=== PATIENT | male | born 1965 | race Caucasian/White ===

== ENCOUNTER 2022-02-08 01:27 | Inpatient (IN) | payer BC ==
[2022-02-08] MEDS ORDERED: HYDROmorphone 1 MG/ML 1 ML SYRINGE IM STA (01:35)
[2022-02-08] MEDS ORDERED: HYDROmorphone 1 MG/ML 1 ML SYRINGE IVP STA (01:36)
--- NOTE | 2022-02-08 01:43 | ED ---
Chest Pain HPI - General Stated Complaint: Chest pain Source: patient, RN notes reviewed, old records reviewed Mode of arrival: EMS Limitations: no limitations - History of Present Illness Initial Comments: This is a 56-year-old male DF for evaluation today. Patient has history of chest pain and presented for chest pain today. Patient has history of heart disease with recent stent placed patient is stent placed on Friday is also scheduled for stent placement on Friday. Patient is currently having adequate chest pain persistent chest pain positive nausea no vomiting no other complaints MD Complaint: chest pain -: hour(s) Onset: during rest Pain Location: left chest Pain Radiation: LUE Severity: severe Severity scale (1-10): 10 Quality: tightness Consistency: constant Improves With: nothing Worsens With: nothing Anginal Symptoms: dyspnea Other Symptoms: palpitations Treatments Prior to Arrival: none - Related Data Allergies Allergy/AdvReac Type Severity Reaction Status Date / Time No Known Allergies Allergy Verified 02/08/22 01:30 Review of Systems ROS Statement: Those systems with pertinent positive or pertinent negative responses have been documented in the HPI. ROS Other: All systems not noted in ROS Statement are negative. Past Medical History Past Medical History: Coronary Artery Disease (CAD), Diabetes Mellitus, Hyperlipidemia, Hypertension History of Any Multi-Drug Resistant Organisms: None Reported Past Surgical History: Heart Catheterization With Stent, Orthopedic Surgery Past Psychological History: No Psychological Hx Reported Smoking Status: Current every day smoker Past Alcohol Use History: Occasional Past Drug Use History: Marijuana General Exam Limitations: no limitations General appearance: alert, in no apparent distress Head exam: Present: atraumatic, normocephalic, normal inspection Eye exam: Present: normal appearance, PERRL, EOMI. Absent: scleral icterus, conjunctival injection, periorbital swelling ENT exam: Present: normal exam, mucous membranes moist Neck exam: Present: normal inspection. Absent: tenderness, meningismus, lymphadenopathy Respiratory exam: Present: normal lung sounds bilaterally. Absent: respiratory distress, wheezes, rales, rhonchi, stridor Cardiovascular Exam: Present: regular rate, normal rhythm, normal heart sounds. Absent: systolic murmur, diastolic murmur, rubs, gallop, clicks GI/Abdominal exam: Present: soft, normal bowel sounds. Absent: distended, tenderness, guarding, rebound, rigid Extremities exam: Present: normal inspection, full ROM, normal capillary refill. Absent: tenderness, pedal edema, joint swelling, calf tenderness Back exam: Present: normal inspection Neurological exam: Present: alert, oriented X3, CN II-XII intact Psychiatric exam: Present: normal affect, normal mood Skin exam: Present: warm, dry, intact, normal color. Absent: rash Course Vital Signs 02/08/22 01:30 Temperature 97.2 F L Pulse Rate 76 Respiratory 16 Rate O2 Sat by Pulse 98 Oximetry - Reevaluation(s) Reevaluation #1: 02/08/22 02:42 Medical record is reviewed Reevaluation #2: 02/08/22 02:42 Patient still having persistent chest pain here in the ER Reevaluation #3: 02/08/22 02:42 Patient informed of results and questions have been answered - Consultations Consultation #1: Spoke with cardiology on-call aware of patient's EKG and clinical condition Consultation #2: Spoke with admitting physicians agreeable to admit patient Chest Pain MDM - MDM 56 male to the ER for evaluation chest pain. Will be admitted for ACS and NSTEMI Critical Care Time Critical Care Time: Yes Total Critical Care Time: 31 Disposition Clinical Impression: Chest pain, ACS (acute coronary syndrome), Acute non-ST elevation myocardial infarction (NSTEMI) Disposition: ADMITTED IP TO THIS HOSP Condition: Undetermined Is patient prescribed a controlled substance at d/c from ED?: No Referrals: None,Stated [Primary Care Provider] - 1-2 days
[2022-02-08] MEDS ORDERED: ASPIRIN 81 MG PO STA (01:51)
[2022-02-08] MEDS ORDERED: NITROGLYCERIN SL TABS 0.4 MG TAB SUBLINGUAL PRN ×2 (01:51→09:58)
[2022-02-08] MEDS ORDERED: MORPHINE SULFATE 4 MG/ML SYRINGE IV PRN (01:51)
[2022-02-08] MEDS ORDERED: HEPARIN SODIUM 1,000 UN/ML (10ML VL) IV ONE (01:51)
[2022-02-08] MEDS ORDERED: ONDANSETRON 4 MG/2 ML VIAL IVP STA (01:52)
[2022-02-08] MEDS ORDERED: METOPROLOL TARTRATE 5 MG/5 ML VIAL IVP STA (01:53)
[2022-02-08 01:57] LABS: Basophils % (A) 0 %; Eosinophils # (A) 0.1 k/uL (0-0.7); Eosinophils % (A) 1 %; HCT 43.6 % (39.0-53.0); HGB 14.5 gm/dL (13.0-17.5); Lymphocytes % (A) 7 %; MCH 28.3 pg (25.0-35.0); MCHC 33.3 g/dL (31.0-37.0); Mean Platelet Volume 8.9; Monocytes # (A) 0.4 k/uL (0-1.0); Monocytes % (A) 3 %; Neutrophils # (A) 12.8 k/uL (1.3-7.7); Neutrophils % (A) 89 %; Platelet Count 208 k/uL (150-450); RBC 5.13 m/uL (4.30-5.90); RDW 13.8 % (11.5-15.5); WBC 14.5 k/uL (3.8-10.6)
[2022-02-08] MEDS: NITROGLYCERIN OINT 1 INCH/GM PACKET TOPICAL SCH ×2 (01:59→06:56)
[2022-02-08] MEDS: HEPARIN SOD,PORK IN 0.45% NACL 25,000 UNIT in 0.45% NACL 1 250ML.BAG IV SCH (02:01)
[2022-02-08] MEDS ORDERED: NITROGLYCERIN SL TABS 0.4 MG TAB SUBLINGUAL STA (02:12)
[2022-02-08 02:21] LABS: INR 1.1 (<1.2)
[2022-02-08 02:22] LABS: Partial Thromboplastin Time 22.9 sec (22.0-30.0); Prothrombin Time 11.6 sec (9.0-12.0)
[2022-02-08 02:54] LABS: ALT 24 U/L (4-49); AST 46 U/L (17-59); African American GFR (CKD) >90 (>60 ml/min/1.73 sqM); Albumin 4.4 g/dL (3.5-5.0); Alkaline Phosphatase 98 U/L (38-126); Anion Gap 11 mmol/L; Blood Urea Nitrogen 21 mg/dL (9-20); Calcium 9.1 mg/dL (8.4-10.2); Carbon Dioxide 21 mmol/L (22-30); Chloride 106 mmol/L (98-107); Glucose 179 mg/dL (74-99); Magnesium 1.9 mg/dL (1.6-2.3); Non-African American GFR(CKD) 89 (>60 ml/min/1.73 sqM); Potassium 4.3 mmol/L (3.5-5.1); Sodium 138 mmol/L (137-145); Total Bilirubin 1.7 mg/dL (0.2-1.3); Total Protein 7.3 g/dL (6.3-8.2)
--- NOTE | 2022-02-08 04:25 | XR ---
EXAM: XR Chest, 1 View CLINICAL HISTORY: ITS.REASON XR Reason: Chest Pain TECHNIQUE: Frontal view of the chest. COMPARISON: No relevant prior studies available. FINDINGS: Lungs: Slight bibasilar opacities. Pleural space: No acute findings Heart: Mild cardiomegaly. Bones/joints: No acute findings. IMPRESSION: Slight bibasilar opacities.
[2022-02-08 05:51] LABS: Platelet Count 198 k/uL (150-450)
[2022-02-08] MEDS ORDERED: ATORVASTATIN 80 MG TAB PO STA (07:53)
[2022-02-08] MEDS ORDERED: ALPRAZolam 0.25 MG TAB PO PRN (08:12)
[2022-02-08] MEDS ORDERED: VERAPAMIL 2.5 MG/ML 2 ML AMP ONE (08:33)
[2022-02-08] MEDS ORDERED: fentaNYL (PF) 50 MCG/ML 2 ML AMP ONE (08:47)
[2022-02-08] MEDS ORDERED: HEPARIN SODIUM 1,000 UN/ML (10ML VL) ONE (08:48)
[2022-02-08] MEDS ORDERED: IV FLUID CONTINUATION 500 ML IV ONE (08:54)
--- NOTE | 2022-02-08 08:55 | P.CRDCN ---
History of Present Illness History of present illness: This is a 56 year old male with a past medical history of coronary artery disease s/p PCI recently to LAD on 02/01/2022, and PCI 13 years ago at [facility], Type 2 Diabetes, Hypertension, hyperlipidemia, chronic nicotine dependence (smoking 1/2 PPD, now down to 5-6 cigarettes per day). He follows with Dr. Sellers in [place]. We have in consultation for patient for acute coronary syndrome. Foster ruth presents emergency department with complaints of chest pain. He recently underwent stenting to the LAD by Dr. Sellers this past Friday secondary to an abnormal stress test. He states that yesterday he had an episode of chest discomfort. Located midsternal, radiating to his left arm. He associated diaphoresis. He denies any specific aggravating or alleviating factors. Nitro did not help his pain. His pain became so severe he presents emergency department for further evaluation. He denies shortness of breath, lightheadedness, dizziness, syncope or near syncope. She denies any palpita tions, orthopnea PND. He denies taking any dual antiplatelet therapy. He was only taking aspirin after his stent placement. He was not taking Plavix, Brilinta or Effient. He states he does not think he was prescribed these. He currently smokes 56 cigarettes per day. He has been smoking for 35 years. He endorses occasional alcohol use 2-3 beers occasionally. Occassionally uses marijuana. He denies any history of stroke or heart failure. DIAGNOSTICS EKG reveals sinus rhythm, heart rate 71, T wave inversions in anterior and lateral leads, and lead II. ST abnormalities in lead V3. No prior EKG to compare. Telemetry tracings indicate sinus mechanism Chest xray no acute cardiopulmonary process Laboratory reviewed, troponin 0.24, 2.39, proBNP 45, WBC 14.5, hemoglobin 14.5, platelets 208, sodium 138, potassium 4.3, BUN 21, serum creatinine 0.9 Current home medications include aspirin 80 mg daily, metformin 500 mg daily, lisinopril 10 mg daily, Imdur 30 mg daily, Bumex 1 mg daily, atorvastatin 40 mg daily REVIEW OF SYSTEMS At the time of my exam: CONSTITUTIONAL: Denies fever or chills. +diaphoresis CARDIOVASCULAR: +chest pain,Denies shortness of breath, orthopnea, PND or pal pitations. RESPIRATORY: Denies cough. GASTROINTESTINAL: Denies abdominal pain, diarrhea, constipation, nausea or vomiting. MUSCULOSKELETAL: Denies myalgias. NEUROLOGIC: Denies numbness, tingling, headacbe or weakness. ENDOCRINE: Denies fatigue, weight change, polydipsia or polyurina. GENITOURINARY: Denies burning, hematuria or urgency with micturation. HEMATOLOGIC: Denies history of anemia or bleeding. PHYSICAL EXAMINATION Blood pressure 153, heart rate 51, afebrile, oxygen saturation 98% room air CONSTITUTIONAL: No apparent distress. HEENT: Head is normocephalic. Pupils are equal, round. Sclerae anicteric. Mucous membranes of the mouth are moist. No JVD. No carotid bruit. CHEST EXAMINATION: Lungs are clear to auscultation. No chest wall tenderness is noted on palpation or with deep breathing. HEART EXAMINATION: Regular rate and rhythm. S1, S2 heard. Systolic murmur noted. No gallops or rub. ABDOMEN: Soft, nontender. Positive bowel sounds. EXTREMITIES: 2+ peripheral pulses, no lower extremity edema and no calf tenderness. NEUROLOGIC EXAMINATION: Patient is awake, alert and oriented x3. ASSESSMENT NSTEMI, patient not taking dual antiplatelet therapy after recent stent place ment Coronary artery disease s/p PCI recently to LAD on 02/01/2022, and PCI 13 years ago at [facility] Type 2 Diabetes Hypertension Hyperlipidemia Chronic nicotine dependence PLAN Plan for cardiac catheterization with Dr. Stevens this morning, patient is agreeable I have discussed the risks, benefits and alternative therapies for the above- mentioned procedure and for both sedation/analgesia as well as necessary blood product administration, if indicated, as they pertain to this patient. The evy ent has indicated understanding and acceptance of the risks and procedures discussed. Questions have been answered appropriately and he is agreeable to move forward with the above-stated procedure. Obtain 2D echocardiogram and doppler study to assess cardiac structure and function. Further recommendations based on clinical course Nurse practitioner note has been reviewed by physician. Signing provider agrees with the documented findings, assessment, and plan of care. Past Medical History Past Medical History: Coronary Artery Disease (CAD), Diabetes Mellitus, Hyperlipidemia, Hypertension History of Any Multi-Drug Resistant Organisms: None Reported Past Surgical History: Heart Catheterization With Stent, Orthopedic Surgery Past Psychological History: No Psychological Hx Reported Smoking Status: Current every day smoker Past Alcohol Use History: Occasional Past Drug Use History: Marijuana Medications and Allergies Home Medications Medication Instructions Recorded Confirmed Type Aspirin EC [Ecotrin Low Dose] 81 mg PO DAILY 02/08/22 02/08/22 History Atorvastatin [Lipitor] 40 mg PO DAILY 02/08/22 02/08/22 History Bumetanide [Bumex] 1 mg PO DAILY 02/08/22 02/08/22 History Isosorbide Mononitrate ER [Imdur] 30 mg PO DAILY 02/08/22 02/08/22 History Pantoprazole [Protonix] 40 mg PO DAILY 02/08/22 02/08/22 History lisinopriL [Zestril] 10 mg PO DAILY 02/08/22 02/08/22 History metFORMIN HCL ER [Glucophage XR] 500 mg PO DAILY 02/08/22 02/08/22 History Allergies Allergy/AdvReac Type Severity Reaction Status Date / Time No Known Allergies Allergy Verified 02/08/22 07:02 Physical Exam Vitals: Vital Signs Temp Pulse Resp BP Pulse Ox 02/08/22 06:00 51 L 16 100/53 98 02/08/22 05:00 60 12 133/80 02/08/22 04:30 58 L 16 146/85 02/08/22 04:00 53 L 16 160/99 02/08/22 03:30 54 L 19 151/86 02/08/22 03:00 62 18 148/89 02/08/22 02:30 73 11 L 152/86 02/08/22 01:30 97.2 F L 76 16 98 Intake and Output 02/07/22 02/08/22 02/08/22 22:59 06:59 14:59 Other: Weight 108.862 kg Results 02/08/22 05:26 02/08/22 02:07 Cardiac Enzymes 02/08/22 02/08/22 02/08/22 Range/Units 02:07 02:07 05:26 AST 46 (17-59) U/L Troponin I 0.243 H* 2.390 H* (0.000-0.034) ng/mL Coagulation 02/08/22 Range/Units 01:48 PT 11.6 (9.0-12.0) sec APTT 22.9 (22.0-30.0) sec CBC 02/08/22 02/08/22 Range/Units 01:48 05:26 WBC 14.5 H (3.8-10.6) k/uL RBC 5.13 (4.30-5.90) m/uL Hgb 14.5 (13.0-17.5) gm/dL Hct 43.6 (39.0-53.0) % Plt Count 208 198 (150-450) k/uL Comprehensive Metabolic Panel 02/08/22 Range/Units 02:07 Sodium 138 (137-145) mmol/L Potassium 4.3 (3.5-5.1) mmol/L Chloride 106 (98-107) mmol/L Carbon Dioxide 21 L (22-30) mmol/L BUN 21 H (9-20) mg/dL Creatinine 0.96 (0.66-1.25) mg/dL Glucose 179 H (74-99) mg/dL Calcium 9.1 (8.4-10.2) mg/dL AST 46 (17-59) U/L ALT 24 (4-49) U/L Alkaline Phosphatase 98 (38-126) U/L Total Protein 7.3 (6.3-8.2) g/dL Albumin 4.4 (3.5-5.0) g/dL Current Medications Generic Name Dose Route Start Last Admin Trade Name Freq PRN Reason Stop Dose Admin Aspirin 325 mg 02/09/22 09:00 Aspirin 325 Mg Tab PO DAILY [facility] Atorvastatin Calcium 80 mg 02/08/22 07:53 Atorvastatin 80 Mg Tab PO 02/08/22 07:54 ONCE STA Heparin Sodium/Sodium Chloride 250 mls @ 10 mls/hr 02/08/22 02:00 02/08/22 02:01 25,000 unit/ Sodium Chloride IV 9.1859 units/kg/hr .Q24H MAXINE 10 mls/hr Administration Protocol 9.1859 UNITS/KG/HR Morphine Sulfate 4 mg 02/08/22 01:51 02/08/22 04:02 Morphine Sulfate 4 Mg/Ml Syringe IV 4 mg Q4HR PRN Administration Chest Pain Nitroglycerin 0.4 mg 02/08/22 01:51 02/08/22 01:48 Nitroglycerin Sl Tabs 0.4 Mg Tab SUBLINGUAL 0.4 mg Q5M PRN Administration Chest Pain Nitroglycerin 1 inch 02/08/22 02:00 02/08/22 06:56 Nitroglycerin Oint 1 Inch/Gm Packet TOPICAL 1 inch Q6HR MAXINE Administration Intake and Output 02/07/22 02/08/22 02/08/22 22:59 06:59 14:59 Other: Weight 108.862 kg 02/08/22 05:26 02/08/22 02:07
[2022-02-08] MEDS ORDERED: LIDOCAINE 1% INJ 10MG/ML (30 ML VIAL-PF) SQ ONE (08:59)
[2022-02-08] MEDS ORDERED: fentaNYL (PF) 50 MCG/ML 2 ML AMP IV ONE (08:59)
[2022-02-08] MEDS ORDERED: VERAPAMIL SYRINGE (5 MG/10 ML) INTRAARTER ONE (09:00)
[2022-02-08] MEDS: HEPARIN SODIUM 1,000 UN/ML (10ML VL) IV ONE ×2 (09:04→09:11)
[2022-02-08] MEDS ORDERED: TICAGRELOR 90 MG TAB ONE (09:11)
[2022-02-08] MEDS ORDERED: TICAGRELOR 90 MG TAB PO ONE (09:14)
[2022-02-08] MEDS ORDERED: IOPAMIDOL-370 125ML BTL INJ ONE (09:19)
[2022-02-08] MEDS ORDERED: IOPAMIDOL-370 100ML BTL INJ ONE (09:45)
--- NOTE | 2022-02-08 09:54 | CA ---
Transthoracic Echo Report Name: Benigno Singh Age: 56 Gender: M : 1965 Exam Date: 02/08/2022 07:35 Exam Location: [facility] Ht (in): 68 Wt (lb): 240 Ordering Physician: Garrison Newton MD Attending/Referring Phys: [id number], [employer] Hiral Delarosa RDCS Procedure CPT: Indications: Rule out heart disease Cardiac Hx: Has two stents /cath Technical Quality: Technically difficult study Contrast 1: Lumason Total Dose (mL): 1 Contrast 2: Total Dose (mL): MEASUREMENTS (Male / Female) Normal Values 2D ECHO LV Diastolic Diameter PLAX 6.4 cm 4.2 - 5.9 / 3.9 - 5.3 cm LV Systolic Diameter PLAX 4.2 cm IVS Diastolic Thickness 1.1 cm 0.6 - 1.0 / 0.6 - 0.9 cm LVPW Diastolic Thickness 1.2 cm 0.6 - 1.0 / 0.6 - 0.9 cm LV Relative Wall Thickness 0.4 RV Internal Dim ED PLAX 2.3 cm M-MODE Aortic Root Diameter MM 3.3 cm LA Systolic Diameter MM 3.7 cm LA Ao Ratio MM 1.1 MV E Point Septal Separation 1.6 cm AV Cusp Separation MM 2.0 cm DOPPLER MV Area PHT 3.4 cm??? MR Peak Velocity 154.3 cm/s MR Peak Gradient 9.5 mmHg Mitral E Point Velocity 84.4 cm/s Mitral A Point Velocity 30.4 cm/s Mitral E to A Ratio 2.8 MV Deceleration Time 225.5 ms MV E' Velocity 5.4 cm/s Mitral E to MV E' Ratio 15.5 TR Peak Velocity 80.6 cm/s TR Peak Gradient 2.6 mmHg Right Ventricular Systolic Press 7.4 mmHg FINDINGS Left Ventricle Moderately increased left ventricular diastolic diameter. Left ventricular ejection fraction is estimated at 30 %. [place] hypokinetic. Grade 3 diastolic dysfunction. Right Ventricle Normal right ventricular size and function. Right Atrium Normal right atrial size. Left Atrium The left atrium is normal in size. Mitral Valve Structurally normal mitral valve without significant stenosis or prolapse. There is mild mitral regurgitation. Aortic Valve Structurally normal aortic valve without significant sclerosis or stenosis. There is no aortic regurgitation. Tricuspid Valve Structurally normal tricuspid valve without significant stenosis. Pulmonary artery systolic pressure is normal. Mild tricuspid regurgitation. Pulmonic Valve Structurally normal pulmonic valve without significant stenosis. There is no pulmonic regurgitation. Pericardium Normal pericardium without effusion. Aorta Normal aortic root dimension. CONCLUSIONS Dilated left ventricle with reduced LV systolic function and a large apical akinesis Left ventricular ejection fraction is 30% or less Previewed by: Dr. Kiko Ann MD (Electronically Signed) Final Date: 08 February 2022 09:53
[2022-02-08] MEDS ORDERED: RX INFO: IV CONTRAST WAS GIVEN 1 EACH MISC MISCELLANE PRN (09:58)
[2022-02-08] MEDS ORDERED: ATROPINE SULFATE 0.1 MG/ML 10ML SYRINGE IV PRN (09:58)
[2022-02-08] MEDS ORDERED: ZOLPIDEM 5 MG TAB PO PRN (09:58)
[2022-02-08] MEDS ORDERED: MAG HYDROX/AL HYDROX/SIMETH 30 ML CUP PO PRN (09:58)
[2022-02-08] MEDS ORDERED: SODIUM CHLORIDE 0.9% 1,000 ML in EMPTY BAG 1 BAG IV SCH (10:00)
--- NOTE | 2022-02-08 10:01 | P.HPIM ---
History of Present Illness This is a pleasant 56 years old male with past medical history of hypertension, hyperlipidemia, diabetes mellitus, coronary artery disease status post stent, nicotine dependence Presents because of chest pain of one-day duration about 05/20 currently 11/18, in the middle of the chest radiating to the left arm, nonspecific in character It is similar to the chest pain he had in about one week ago where a stent was placed in one blocked artery about 99% and he supposed to go back on the 02/22 to do the another black which was 85% but there is no which over the coronary arteries. He smoked less than 1 pack per day and he was counseled to quit 10 but he declined nicotine patch. No colon or illicit drugs. Also complaining from chronic neck pain Temperature is 97.2, patient is slightly bradycardic 51-60. Blood pressure 100/53. Labs showing mild leukocytosis with 14.5, rest of CBC, INR, BMP and liver enzymes are unremarkable. Troponin is elevated 0.2 and 2.3. ProBNP is 845. EKG showing normal sinus rhythm at 77 with UA inversion and lateral leads. Chest x-ray: Slight bibasilar opacities Review of Systems CONSTITUTIONAL: No fever, no malaise, no fatigue. HEENT: No recent visual problems or hearing problems. Denied any sore throat. CARDIOVASCULAR: No orthopnea, PND, no palpitations, no syncope. PULMONARY: No shortness of breath, no cough, no hemoptysis. GASTROINTESTINAL: No diarrhea, no nausea, no vomiting, no abdominal pain. Normoactive bowel sounds. NEUROLOGICAL: No headaches, no weakness, no numbness. HEMATOLOGICAL: Denies any bleeding or petechiae. GENITOURINARY: Denies any burning micturition, frequency, or urgency. MUSCULOSKELETAL/RHEUMATOLOGICAL: Denies any joint pain, swelling, or any muscle pain. ENDOCRINE: Denies any polyuria or polydipsia. Past Medical History Past Medical History: Coronary Artery Disease (CAD), Diabetes Mellitus, Hyperlipidemia, Hypertension History of Any Multi-Drug Resistant Organisms: None Reported Past Surgical History: Heart Catheterization With Stent, Orthopedic Surgery Past Psychological History: No Psychological Hx Reported Smoking Status: Current every day smoker Past Alcohol Use History: Occasional Past Drug Use History: Marijuana Medications and Allergies Home Medications Medication Instructions Recorded Confirmed Type Aspirin EC [Ecotrin Low Dose] 81 mg PO DAILY 02/08/22 02/08/22 History Atorvastatin [Lipitor] 40 mg PO DAILY 02/08/22 02/08/22 History Bumetanide [Bumex] 1 mg PO DAILY 02/08/22 02/08/22 History Isosorbide Mononitrate ER [Imdur] 30 mg PO DAILY 02/08/22 02/08/22 History Pantoprazole [Protonix] 40 mg PO DAILY 02/08/22 02/08/22 History lisinopriL [Zestril] 10 mg PO DAILY 02/08/22 02/08/22 History metFORMIN HCL ER [Glucophage XR] 500 mg PO DAILY 02/08/22 02/08/22 History Allergies Allergy/AdvReac Type Severity Reaction Status Date / Time No Known Allergies Allergy Verified 02/08/22 07:02 Physical Exam Vitals: Vital Signs Temp Pulse Resp BP Pulse Ox 02/08/22 06:00 51 L 16 100/53 98 02/08/22 05:00 60 12 133/80 02/08/22 04:30 58 L 16 146/85 02/08/22 04:00 53 L 16 160/99 02/08/22 03:30 54 L 19 151/86 02/08/22 03:00 62 18 148/89 02/08/22 02:30 73 11 L 152/86 02/08/22 01:30 97.2 F L 76 16 98 Intake and Output 02/07/22 02/08/22 02/08/22 22:59 06:59 14:59 Other: Weight 108.862 kg GENERAL: The patient is alert and oriented x3, not in any acute distress. Well developed, well nourished. HEENT: Pupils are round and equally reacting to light. EOMI. No scleral icterus. No conjunctival pallor. Normocephalic, atraumatic. No pharyngeal erythema. No thyromegaly. CARDIOVASCULAR: S1 and S2 present. No murmurs, rubs, or gallops. PULMONARY: Chest is clear to auscultation, no wheezing or crackles. ABDOMEN: Soft, nontender, nondistended, normoactive bowel sounds. No palpable organomegaly. MUSCULOSKELETAL: No joint swelling or deformity. EXTREMITIES: No cyanosis, clubbing, or pedal edema. NEUROLOGICAL: Gross neurological examination did not reveal any focal deficits. SKIN: No rashes. No petechiae Results CBC & Chem 7: 02/08/22 05:26 02/08/22 02:07 Labs: Abnormal Lab Results - Last 24 Hours (Table) 02/08/22 02/08/22 02/08/22 Range/Units 01:48 02:07 02:07 WBC 14.5 H (3.8-10.6) k/uL Neutrophils # 12.8 H (1.3-7.7) k/uL Carbon Dioxide 21 L (22-30) mmol/L BUN 21 H (9-20) mg/dL Glucose 179 H (74-99) mg/dL Total Bilirubin 1.7 H (0.2-1.3) mg/dL Troponin I 0.243 H* (0.000-0.034) ng/mL 02/08/22 Range/Units 05:26 WBC (3.8-10.6) k/uL Neutrophils # (1.3-7.7) k/uL Carbon Dioxide (22-30) mmol/L BUN (9-20) mg/dL Glucose (74-99) mg/dL Total Bilirubin (0.2-1.3) mg/dL Troponin I 2.390 H* (0.000-0.034) ng/mL Assessment and Plan Assessment: Non-STEMI Nonadherence to therapy Diabetes mellitus Hypertension Hyperlipidemia History of coronary artery disease status post stenting Nicotine dependence Plan: This is a pleasant 56 years old male who presents with chest pain and nondistended We'll do serial troponins, cardiology consult, who plan to take him for cardiac cath Check echocardiogram Continue with heparin drip and aspirin Labs and medication were reviewed.. Continue same treatment. Continue with symptomatic treatment. Resume home medication. Monitor lytes and vitals. DVT and GI prophylaxis. Further recommendations depends on the clinical course of the patient DVT prophylaxis: Subcutaneous heparin GI Prophylaxis: Pepcid PT/OT: Pending Prognosis is guarded
--- NOTE | 2022-02-08 10:10 | P.CARDCATH ---
Date of Procedure: 02/08/22 Description of Procedure: Cardiac Catheterization: The patient is a 56-year-old male with a known history of CAD, hypertension, hyperlipidemia, diabetes mellitus and chronic tobacco use who recently had an abnormal MPI and underwent stenting of his LAD at [facility] one week ago. At that time he was found to have significant obstructive disease in the RCA and a chronically occluded left circumflex. The patient was discharged home and did not receive Brilinta and presented with chest discomfort and EKG changes consistent with anterolateral wall ME. Recommendations were made regarding cardiac catheterization, the risks and the complications were discussed with the patient who is in full understanding and agreement. Procedure Description: Patient was brought to salvage laborer in fasting semi-sedated state after receiving Fentanyl and Benadryl achieiving moderate conscious sedated state. Using Xylocaine Anesthesia and Seldinger technique, a 6-Tu[place] sheath was introduced in the left radial artery . Subsequently, selective coronary angiography was performed using a 5-Tu[place]uan 3.5 bend right Dante and 6-Tu[place]uan EBU 3.75 guiding catheter. Multiple views of the coronary artery including hemiaxial views were obtained. The EBU catheter was used to cross the aortic valve and LVEDP was calculated. Following that, angioplasty and stenting was performed. There was no immediate complication. Of note, the patient received a total of 5000 units of intravenous heparin as well as intra-arterial verapamil. There was no immediate complications. Findings: Left main: This is a large size vessel, bifurcating into LAD and left circumflex, left main has 20% plaque distally LAD: This vessel gives rise to a very proximal diagonal branch, prior to the septal in store marketing associate there is a 20-30% left, at the takeoff of the septal in store marketing associate the stented segment acutely occluded with minimal antegrade flow. Left circumflex: This vessel gives rise to 2 obtuse marginal branch, the takeoff of the first echo branch has a 60% plaque following that the vessel is totally occluded with slow retrograde filling of the second OM. RCA: This is a large dominant vessel, bifurcating into PDA and PLV, the proximal RCA has a complex 95% stenosis. Collaterals there is collateral from the RCA toward the second OM Left Ventriculogram: Not performed Hemodynamics: There was no gradient across the aortic valve, LVEDP 16-18 mmHg Conclusion: 1. Acute thrombosis of the proximal LAD stent 2. Critical stenosis in the proximal RCA 3. Chronically occluded second OM 4. Mild distal left main disease Recommendations: Have recommended to proceed with angioplasty and stenting, the procedure as well as the recommendations were discussed with the patient who was in agreement to proceed.
--- NOTE | 2022-02-08 10:14 | P.CARDCATH ---
Date of Procedure: 02/08/22 Description of Procedure: PERCUTANEOUS TRANSLUMINAL CORONARY ANGIOPLASTY CLINICAL INFORMATION: The patient is a 56-year-old male who presented with into wall myocardial infarction, underwent stenting of his LAD one week ago and was found to have acute thrombosis of the LAD. The procedure as well as the risks and the complications were discussed with the patient who was in full understanding and agreement. PROCEDURE: A 6 Green[place]ic EBU 3.75 guiding catheter was introduced into the system. After cannulating the left main, a 0.014 BMW with a straight fine cross microcatheter was advanced across the lesion and positioned distally. An export catheter was advanced and one run was done. Following that a 2.5 x 12 NC Treck balloon was advanced and inflated at 12 atmosphere. Following that and [place] IVUS catheter was introduced and images were obtained. A 3.0 x 15 mm NC Treck balloon was advanced and multiple inflations were done. Following that a 3.25 x 15 mm Xience ijeoma point stent was deployed. It was dilated at 16. Following that a 3.0 x 15 mm NC Treck balloon was advanced and one inflation at 16 ford was done. After the last inflation, after appropriate wait, the balloon and the guidewire were withdrawn back into the guiding catheter. Images were obtained and repeated. Those images reveal stable successful stenting. At that point, the guiding catheter, the balloon, and guidewire were removed. The sheath was removed. Hemostasis was obtained with deployment of a TR band. Th ere were no immediate complications. The patient was returned to the room in stable condition. Of note, the patient received total of 7000 units of heparin as well as Brilinta. His ACT was followed. There was no immediate complications. His chest discomfort improved and he had no new EKG changes. RESULTS: Successful stenting of the proximal LAD with reduction of stenosis from 100 % to 0 %. RECOMMENDATIONS: I have recommended aggressive coronary risk modifications with dual antiplatelets treatment with aspirin and Brilinta for one year. The patient will need to be evaluated regarding his RCA disease at a later time. The findings and recommendations were discussed with the patient and the family, they are in full understanding and agreement. Duration of sedation: 47
[2022-02-08] MEDS ORDERED: ACETAMINOPHEN TAB 325 MG TAB ONE (13:17)
[2022-02-08] MEDS: SODIUM CHLORIDE 0.9% 1,000 ML in EMPTY BAG 1 BAG IV SCH ×2 (14:29→17:52)
[2022-02-08 14:55] LABS: Glucose,Whole Blood 108 mg/dL (70-110)
[2022-02-08] MEDS: carvediloL 3.125 MG TAB PO SCH ×2 (14:55→17:48)
[2022-02-08 16:42] LABS: Glucose,Whole Blood 98 mg/dL (70-110)
[2022-02-08] MEDS: INSULIN ASPART (NovoLOG) 100 UNIT/ML VIAL SQ SCH ×2 (17:00→21:10)
[2022-02-08] MEDS: ALPRAZolam 0.5 MG TAB PO PRN (18:46)
[2022-02-08] MEDS: ATORVASTATIN 80 MG TAB PO SCH (19:53)
[2022-02-08] MEDS: lisinopriL 5 MG TAB PO SCH (19:53)
[2022-02-08] MEDS: TICAGRELOR 90 MG TAB PO SCH (19:54)
[2022-02-08] MEDS: ACETAMINOPHEN TAB 325 MG TAB PO PRN (19:54)
[2022-02-08 21:06] LABS: Glucose,Whole Blood 94 mg/dL (70-110)
[2022-02-09] MEDS: HEPARIN SOD,PORK IN 0.45% NACL 25,000 UNIT in 0.45% NACL 1 250ML.BAG IV SCH (00:54)
[2022-02-09] MEDS: ACETAMINOPHEN TAB 325 MG TAB PO PRN (03:20)
[2022-02-09] MEDS: ALPRAZolam 0.5 MG TAB PO PRN ×2 (03:21→20:33)
[2022-02-09 06:20] LABS: Glucose,Whole Blood 102 mg/dL (70-110)
[2022-02-09] MEDS: INSULIN ASPART (NovoLOG) 100 UNIT/ML VIAL SQ SCH ×4 (06:40→20:23)
[2022-02-09] MEDS ORDERED: HEPARIN SODIUM,PORCINE 2,500 UNIT in SODIUM CHLORIDE 0.9% 250 ML IRRIGATION PRN (07:00)
[2022-02-09] MEDS ORDERED: HEPARIN SODIUM,PORCINE 10,000 UNIT in SODIUM CHLORIDE 0.9% 1,000 ML IRRIGATION PRN (07:00)
--- NOTE | 2022-02-09 07:58 | P.PN ---
Subjective Progress Note Date: 02/09/22 PROGRESS NOTE The patient is a 56-year-old male who presented with an acute myocardial infarction, he underwent stenting of his LAD one week ago and Flovent and came in with acute thrombosis of the stent. Underwent angioplasty and stenting of the vessel. He was found to have significant obstructive disease in the proximal RCA was chronically occluded second OM. He's feeling well this morning, he has mild soreness in the chest, his breathing is stable. He is anxious to go home. He denies any dizziness or palpitations. His echocardiogram showed an ejection fraction of 30%. He has no PND or orthopnea. He continues to be in sinus mechanism. Medications: Aspirin, Lipitor 80 mg daily, Coreg 3.125 mg twice a day, insulin, Zestril 5 mg twice a day, Aldactone 25 mg daily, Brilinta 90 mg twice a day PHYSICAL EXAMINATION: Blood pressure [ 128/84 ] heart rate [ 66 ] LUNGS: [Clear to auscultation] HEART: [Regular rate and rhythm, S1, S2. No S3. systolic ejection murmur] ABDOMEN: [Soft, nontender, no organomegaly] EXTREMETIES: [No edema, Left radial pulse intact ] LAB: [ EKG shows sinus mechanism with evidence of anterolateral wall myocardial infarction. Troponin up to 50 ] IMPRESSION: 1. [ status post acute myocardial infarction with stenting of the acute thrombosis of LAD stent, patient was not taking dual antiplatelets treatment] 2. [ ischemic cardiomyopathy] 3. [ triple-vessel disease with obstructive disease in the RCA] 4. [History of hypertension 5. History of diabetes 6. Chronic tobacco use ] PLAN: 1. [ increase Coreg] 2. [ increase physical activity] 3. [ follow her renal functions] 4. [Patient with require revascularization of the RCA that can be done at the later time once he stabilizes. 5. Smoking cessation 6. Depending on his progress further recommendations will be made.] Objective - Vital Signs Vital signs: Vital Signs Temp 98.3 F 02/09/22 02:43 Pulse 66 02/09/22 02:43 Resp 18 02/09/22 02:43 BP 128/84 02/09/22 02:43 Pulse Ox 95 02/09/22 02:43 FiO2 Intake & Output 02/08/22 02/09/22 02/09/22 18:59 06:59 18:59 Intake Total 580 Balance 580 Weight 108.862 kg Intake: IV 100 Oral 480 Other: Voiding Method Toilet Toilet # Voids 1 1 - Labs CBC & Chem 7: 02/08/22 05:26 02/08/22 02:07 Labs: Abnormal Lab Results - Last 24 Hours (Table) 02/08/22 Range/Units 14:29 Troponin I 50.200 H* (0.000-0.034) ng/mL
[2022-02-09] MEDS: lisinopriL 5 MG TAB PO SCH ×2 (08:36→20:33)
[2022-02-09] MEDS: HEPARIN SODIUM,PORCINE/PF 5,000 UNIT/0.5 ML SYRINGE SQ SCH ×2 (08:36→20:32)
[2022-02-09] MEDS: ASPIRIN 81 MG PO SCH (08:37)
[2022-02-09] MEDS: TICAGRELOR 90 MG TAB PO SCH ×2 (08:37→20:33)
[2022-02-09] MEDS: SPIRONOLACTONE 25 MG TAB PO SCH (08:37)
[2022-02-09] MEDS: FAMOTIDINE 20 MG/2 ML VIAL IV SCH ×2 (08:39→20:33)
[2022-02-09] MEDS ORDERED: ASPIRIN 325 MG TAB PO SCH (09:00)
[2022-02-09 09:02] LABS: Basophils % (A) 1 %; Eosinophils # (A) 0.2 k/uL (0-0.7); Eosinophils % (A) 2 %; HCT 40.9 % (39.0-53.0); HGB 13.6 gm/dL (13.0-17.5); Lymphocytes # (A) 1.1 k/uL (1.0-4.8); Lymphocytes % (A) 12 %; MCH 28.8 pg (25.0-35.0); MCHC 33.3 g/dL (31.0-37.0); MCV 86.4 fL (80.0-100.0); Mean Platelet Volume 8.3; Monocytes # (A) 0.4 k/uL (0-1.0); Monocytes % (A) 5 %; Neutrophils # (A) 7.1 k/uL (1.3-7.7); Neutrophils % (A) 80 %; Platelet Count 167 k/uL (150-450); RBC 4.74 m/uL (4.30-5.90); RDW 13.5 % (11.5-15.5); WBC 8.9 k/uL (3.8-10.6)
[2022-02-09 09:19] LABS: African American GFR (CKD) >90 (>60 ml/min/1.73 sqM); Anion Gap 7 mmol/L; Blood Urea Nitrogen 18 mg/dL (9-20); Calcium 8.9 mg/dL (8.4-10.2); Carbon Dioxide 26 mmol/L (22-30); Chloride 107 mmol/L (98-107); Glucose 174 mg/dL (74-99); Non-African American GFR(CKD) >90 (>60 ml/min/1.73 sqM); Sodium 140 mmol/L (137-145)
[2022-02-09] MEDS: carvediloL 3.125 MG TAB PO SCH (09:42)
[2022-02-09 11:37] LABS: Glucose,Whole Blood 86 mg/dL (70-110)
[2022-02-09 11:59] VITALS: BMI 36.5
[2022-02-09 16:06] LABS: Chol/HDL Ratio 3.25 Ratio; LDL Cholesterol,Calculated 46.9 mg/dL (0.0-131.0)
[2022-02-09 16:42] LABS: Glucose,Whole Blood 109 mg/dL (70-110)
--- NOTE | 2022-02-09 17:00 | P.PN ---
Subjective This is a pleasant 56 years old male with past medical history of hypertension, hyperlipidemia, diabetes mellitus, coronary artery disease status post stent, nicotine dependence Presents because of chest pain of one-day duration about 05/20 currently 11/18, in the middle of the chest radiating to the left arm, nonspecific in character It is similar to the chest pain he had in about one week ago where a stent was placed in one blocked artery about 99% and he supposed to go back on the 02/22 to do the another black which was 85% but there is no which over the coronary arteries. He smoked less than 1 pack per day and he was counseled to quit 10 but he declined nicotine patch. No colon or illicit drugs. Also complaining from chronic neck pain Temperature is 97.2, patient is slightly bradycardic 51-60. Blood pressure 100/53. Labs showing mild leukocytosis with 14.5, rest of CBC, INR, BMP and liver enzymes are unremarkable. Troponin is elevated 0.2 and 2.3. ProBNP is 845. EKG showing normal sinus rhythm at 77 with UA inversion and lateral leads. Chest x-ray: Slight bibasilar opacities 02/09/2022 Patient is asymptomatic today. No chest pain or dyspnea. He was asking if he can go home today, explained to him a still needs to be monitored to the hospital and he agrees. The importance of metastasis therapy of aspirin and Brillinta is explained for him and he verbalized understanding and acceptance pt will need to do his RCA blockage at a later stage per stone unloader recommendation Objective - Vital Signs Vital signs: Vital Signs Temp 98.2 F 02/09/22 08:24 Pulse 64 02/09/22 08:24 Resp 16 02/09/22 08:24 BP 120/68 02/09/22 08:24 Pulse Ox 99 02/09/22 08:24 FiO2 Intake & Output 02/08/22 02/09/22 02/09/22 18:59 06:59 18:59 Intake Total 580 118 Balance 580 118 Weight 108.862 kg 108.862 kg Intake: IV 100 Oral 480 118 Other: Voiding Method Toilet Toilet # Voids 1 1 - Exam GENERAL: The patient is alert and oriented x3, not in any acute distress. Well developed, well nourished. HEENT: Pupils are round and equally reacting to light. EOMI. No scleral icterus. No conjunctival pallor. Normocephalic, atraumatic. No pharyngeal erythema. No thyromegaly. CARDIOVASCULAR: S1 and S2 present. No murmurs, rubs, or gallops. PULMONARY: Chest is clear to auscultation, no wheezing or crackles. ABDOMEN: Soft, nontender, nondistended, normoactive bowel sounds. No palpable organomegaly. MUSCULOSKELETAL: No joint swelling or deformity. EXTREMITIES: No cyanosis, clubbing, or pedal edema. NEUROLOGICAL: Gross neurological examination did not reveal any focal deficits. SKIN: No rashes. no petechiae. - Labs CBC & Chem 7: 02/09/22 08:32 02/09/22 08:32 Labs: Abnormal Lab Results - Last 24 Hours (Table) 02/08/22 02/09/22 Range/Units 14:29 08:32 Glucose 174 H (74-99) mg/dL Troponin I 50.200 H* (0.000-0.034) ng/mL Assessment and Plan Assessment: Non-STEMI, status post PCI to proximal LAD Nonadherence to therapy Diabetes mellitus Hypertension Hyperlipidemia History of coronary artery disease status post stenting Nicotine dependence Plan: This is a pleasant 56 years old male who presents with chest pain and nondistended continue with brillinta and aspirin Check creatinine tomorrow Labs and medication were reviewed.. Continue same treatment. Continue with symptomatic treatment. Resume home medication. Monitor lytes and vitals. DVT and GI prophylaxis. Further recommendations depends on the clinical course of the patient DVT prophylaxis: Subcutaneous heparin GI Prophylaxis: Pepcid
[2022-02-09] MEDS: carvediloL 6.25 MG TAB PO SCH (17:21)
[2022-02-09 19:34] VITALS: TEMP 98.1
[2022-02-09 20:24] LABS: Glucose,Whole Blood 118 mg/dL (70-110)
[2022-02-09] MEDS: ATORVASTATIN 80 MG TAB PO SCH (20:33)
[2022-02-10 06:19] LABS: Glucose,Whole Blood 116 mg/dL (70-110)
[2022-02-10] MEDS: INSULIN ASPART (NovoLOG) 100 UNIT/ML VIAL SQ SCH ×2 (06:19→11:47)
[2022-02-10] MEDS: carvediloL 6.25 MG TAB PO SCH (06:23)
[2022-02-10 08:06] LABS: Mean Platelet Volume 8.3; Platelet Count 176 k/uL (150-450)
[2022-02-10 08:19] LABS: African American GFR (CKD) >90 (>60 ml/min/1.73 sqM); Anion Gap 7 mmol/L; Blood Urea Nitrogen 14 mg/dL (9-20); Carbon Dioxide 25 mmol/L (22-30); Chloride 107 mmol/L (98-107); Glucose 133 mg/dL (74-99); Non-African American GFR(CKD) >90 (>60 ml/min/1.73 sqM); Potassium 4.4 mmol/L (3.5-5.1); Sodium 139 mmol/L (137-145)
[2022-02-10 08:27] VITALS: RESP 16
[2022-02-10] MEDS: ASPIRIN 81 MG PO SCH (08:27)
[2022-02-10] MEDS: TICAGRELOR 90 MG TAB PO SCH (08:27)
[2022-02-10] MEDS: lisinopriL 5 MG TAB PO SCH (08:27)
[2022-02-10] MEDS: FAMOTIDINE 20 MG/2 ML VIAL IV SCH (08:28)
[2022-02-10] MEDS: HEPARIN SODIUM,PORCINE/PF 5,000 UNIT/0.5 ML SYRINGE SQ SCH (08:28)
[2022-02-10] MEDS: SPIRONOLACTONE 25 MG TAB PO SCH (08:28)
[2022-02-10 11:45] VITALS: BP 131/79; PULSE 58
[2022-02-10 12:00] LABS: Glucose,Whole Blood 96 mg/dL (70-110)
--- NOTE | 2022-02-10 12:56 | P.PN ---
Subjective Progress Note Date: 02/10/22 PROGRESS NOTE The patient is a 56-year-old male who presented with an acute myocardial infarction, he underwent stenting of his LAD one week ago and Flovent and came in with acute thrombosis of the stent. Underwent angioplasty and stenting of the vessel. He was found to have significant obstructive disease in the proximal RCA was chronically occluded second OM. He's feeling well this morning, he has mild soreness in the chest, his breathing is stable. He is anxious to go home. He denies any dizziness or palpitations. His echocardiogram showed an ejection fraction of 30%. He has no PND or orthopnea. He continues to be in sinus mechanism. February 10: The patient feels well this morning, anxious to go home. He denies any chest discomfort, dizziness or palpitations. He is ambulating without difficulties. He continues to be in sinus mechanism. There is no episodes of ventricular tachycardia. He has underwent stenting of the LAD and has known obstructive disease in the RCA and would require staged stenting. Medications: Aspirin, Lipitor 80 mg daily, Coreg 6.25 mg twice a day, insulin, Zestril 5 mg twice a day, Aldactone 25 mg daily, Brilinta 90 mg twice a day PHYSICAL EXAMINATION: Blood pressure 131/79 heart rate 58 LUNGS: Clear to auscultation HEART: Regular rate and rhythm, S1, S2. No S3. systolic ejection murmur ABDOMEN: Soft, nontender, no organomegaly EXTREMETIES: No edema, Left radial pulse intact LAB: Potassium 4.4, BUN 14, creatinine 0.87 IMPRESSION: 1. status post acute myocardial infarction with stenting of the acute thrombosis of LAD stent, patient was not taking dual antiplatelets treatment 2. ischemic cardiomyopathy 3. triple-vessel disease with obstructive disease in the RCA 4. History of hypertension 5. History of diabetes 6. Chronic tobacco use PLAN: 1. Increase physical activity 2. Smoking cessation 3. Discharged home today and follow-up in one week to be readmitted to undergo stenting of the RCA. 4. Continue dual antiplatelets treatment for one year. Objective - Vital Signs Vital signs: Vital Signs Temp 98.1 F 02/10/22 08:25 Pulse 58 L 02/10/22 11:44 Resp 16 02/10/22 11:44 BP 131/79 02/10/22 11:44 Pulse Ox 94 L 02/10/22 11:44 FiO2 Intake & Output 02/09/22 02/10/22 02/10/22 18:59 06:59 18:59 Intake Total 858 240 Balance 858 240 Weight 108.862 kg Intake: Oral 858 240 Other: Voiding Method Toilet # Voids 2 # Bowel Movements 1 - Labs CBC & Chem 7: 02/10/22 07:40 02/10/22 07:40 Labs: Abnormal Lab Results - Last 24 Hours (Table) 02/09/22 02/09/22 02/10/22 Range/Units 08:32 20:22 06:17 Glucose (74-99) mg/dL POC Glucose (mg/dL) 118 H 116 H (70-110) mg/dL HDL Cholesterol 32.30 L (40.00-60.00) mg/dL 02/10/22 Range/Units 07:40 Glucose 133 H (74-99) mg/dL POC Glucose (mg/dL) (70-110) mg/dL HDL Cholesterol (40.00-60.00) mg/dL
[2022-02-10] MEDS ORDERED: FAMOTIDINE 20 MG TAB PO SCH (21:00)
--- NOTE | 2022-02-11 01:34 | P.DS ---
Providers Date of admission: 02/08/22 05:30 Attending physician: Deniz Meza Consults: 02/08/22 01:51 Consult Physician Urgent Consulting Provider: Georgi Stevens Consult Reason/Comments: acs Do you want consulting provider notified?: Yes 02/08/22 09:58 Consult Physician Routine Consulting Provider: [facility] Consult Reason/Comments: Post Interventional Patient Do you want consulting provider notified?: Already Contacted Primary care physician: Stated None Hospital Course: Diagnoses Non-STEMI, status post PCI to proximal LAD Nonadherence to therapy Diabetes mellitus Hypertension Hyperlipidemia History of coronary artery disease status post stenting Nicotine dependence Hospital course: This is a pleasant 56 years old male with past medical history of hypertension, hyperlipidemia, diabetes mellitus, coronary artery disease status post stent, nicotine dependence Presents because of chest pain of one-day duration , Found to have non-STEMI he will been evaluated by barrel marker and underwent cardiac cath and the stent placed to the proximal LAD. With resolution of his symptoms and he is back to his normal self. Denied chest pain or dyspnea or any other symptoms upon di scharge. Patient is aware that he has another lesion in his right coronary artery that needs to be followed up closely with his barrel marker in 1 week for possible further intervention. Patient also aware of the importance of continuing dual antiplatelet therapy with risks benefits explained in details. Patient was eager to be discharged today Patient will be discharged on aspirin and Brillinta patient was cleared for discharge by barrel marker Problems and management plan were discussed with the patient and he verbalized understanding and acceptance Patient was found stable and can be discharged home however he needs follow-up as an outpatient. Patient was instructed to follow up with PCP Dr. katz, within one week and patient agrees Patient was instructed to follow up with Dr. perry in 1 week after discharge and increased colonic appointment as today is weakened Physical exam Gen: patient is a AAOx3, no distress CVS: S1-S2, RRR, no murmur Lungs: B/L CTA, no wheezing Abdomen: soft, no distention, no tenderness, positive bowel sounds Extremity: no leg edema or induration Time spent more than 35 minutes Patient Condition at Discharge: Undetermined Plan - Discharge Summary Discharge Rx Participant: Yes New Discharge Prescriptions: New Ticagrelor [Brilinta] 90 mg PO BID 90 Days #180 tab Atorvastatin [Lipitor] 80 mg PO HS #90 tab Nitroglycerin Sl Tabs [Nitrostat] 0.4 mg SUBLINGUAL Q5M PRN #25 tab PRN Reason: Chest Pain Spironolactone [Aldactone] 25 mg PO DAILY #30 tab carvediloL [Coreg] 6.25 mg PO BID #60 tablet Continue Pantoprazole [Protonix] 40 mg PO DAILY Aspirin EC [Ecotrin Low Dose] 81 mg PO DAILY #30 tab lisinopriL [Zestril] 10 mg PO DAILY #30 tab Discontinued Isosorbide Mononitrate ER [Imdur] 30 mg PO DAILY Atorvastatin [Lipitor] 40 mg PO DAILY No Action metFORMIN HCL ER [Glucophage XR] 500 mg PO DAILY Bumetanide [Bumex] 1 mg PO DAILY Discharge Medication List Atorvastatin [Lipitor] 80 mg PO HS #90 tab 02/08/22 [Rx] Bumetanide [Bumex] 1 mg PO DAILY 02/08/22 [History] Nitroglycerin Sl Tabs [Nitrostat] 0.4 mg SUBLINGUAL Q5M PRN #25 tab 02/08/22 [Rx] Pantoprazole [Protonix] 40 mg PO DAILY 02/08/22 [History] Ticagrelor [Brilinta] 90 mg PO BID 90 Days #180 tab 02/08/22 [Rx] metFORMIN HCL ER [Glucophage XR] 500 mg PO DAILY 02/08/22 [History] Aspirin EC [Ecotrin Low Dose] 81 mg PO DAILY #30 tab 02/10/22 [Rx] Spironolactone [Aldactone] 25 mg PO DAILY #30 tab 02/10/22 [Rx] carvediloL [Coreg] 6.25 mg PO BID #60 tablet 02/10/22 [Rx] lisinopriL [Zestril] 10 mg PO DAILY #30 tab 02/10/22 [Rx] Follow up Appointment(s)/Referral(s): Georgi Stevens MD [STAFF PHYSICIAN] - 1 Week (Office is closed. Please call to schedule appointment you will need another steni in one week ) None,Stated [Primary Care Provider] - 1-2 days Francisca Sellers MD [REFERRING] - 1 Week (Please call to schedule appointment) Patient Instructions/Handouts: *Surgery [facility] - After Heart Catheterization - [facility] Instructions Activity/Diet/Wound Care/Special Instructions: Brilinta covered - filled at [facility] copay $30 heart healthy diet activity is restricted till you see your doctor we recommend to check you glucose 4 times a day , before each meal and at bed time, and keep the results in a log book and bring it to your doctor on your appointment date if your glucose is more than 400 or less than 70 then call 911 and come to emergency room Discharge Disposition: HOME SELF-CARE
== END 2022-02-10 14:43 | disposition home or self-care (01) | DRG 246 ==
LOC: EC 01:27 → 3SCARD 05:30
PROVIDERS: ADMIT Hospitalist; ATTEND Hospitalist
PROC: B2111ZZ Fluoroscopy of Multiple Coronary Arteries using Low Osmolar Contrast (ICD-10-PCS; 2022-02-08)
PROC: B240ZZ3 Ultrasonography of Single Coronary Artery, Intravascular (ICD-10-PCS; 2022-02-08)
PROC: 027035Z Dilation of Coronary Artery, One Artery with Two Drug-eluting Intraluminal Devices, Percutaneous Approach (ICD-10-PCS; principal; 2022-02-08 11:25)
PROC: 4A023N7 Measurement of Cardiac Sampling and Pressure, Left Heart, Percutaneous Approach (ICD-10-PCS; 2022-02-08 11:25)
DX: I97.190 Other postprocedural cardiac functional disturbances following cardiac surgery (principal); I21.A9 Other myocardial infarction type; T82.867A Thrombosis due to cardiac prosthetic devices, implants and grafts, initial encounter; I25.10 Atherosclerotic heart disease of native coronary artery without angina pectoris; E11.9 Type 2 diabetes mellitus without complications; E78.5 Hyperlipidemia, unspecified; F17.210 Nicotine dependence, cigarettes, uncomplicated; Z20.822 Contact with and (suspected) exposure to COVID-19; G89.29 Other chronic pain; M54.2 Cervicalgia; I10 Essential (primary) hypertension; I25.5 Ischemic cardiomyopathy; Y71.2 Prosthetic and other implants, materials and accessory cardiovascular devices associated with adverse incidents; Z95.5 Presence of coronary angioplasty implant and graft; Z79.82 Long term (current) use of aspirin; Z79.84 Long term (current) use of oral hypoglycemic drugs; Z79.899 Other long term (current) drug therapy
CPT/HCPCS: 36415; 71045; 80048; 80053; 80061; 83735; 83880; 84484; 85025; 85049; 85610; 85730; 87635; 93005; 93306; 93458; 94760; 96365; 96366; 96375; 99291

== ENCOUNTER 2022-02-25 06:16 | Day surgery (SDC) | payer BC ==
[2022-02-22 10:36] VITALS: BMI 37.2
[~2022-02-25 06:16] MED LIST: ALPRAZolam 0.25 MG TAB PO PRN; ASPIRIN 325 MG TAB PO STA; NITROGLYCERIN SL TABS 0.4 MG TAB SUBLINGUAL PRN
[2022-02-25] MEDS ORDERED: SODIUM CHLORIDE 0.9% 1,000 ML IV ONE (06:31)
[2022-02-25] MEDS: SODIUM CHLORIDE 0.9% 1,000 ML in EMPTY BAG 1 BAG IV SCH ×3 (06:35→20:55)
[2022-02-25 06:55] LABS: Glucose,Whole Blood 112 mg/dL (70-110)
[2022-02-25] MEDS ORDERED: VERAPAMIL 2.5 MG/ML 2 ML AMP ONE (07:13)
[2022-02-25] MEDS ORDERED: fentaNYL (PF) 50 MCG/ML 2 ML AMP ONE (07:13)
[2022-02-25] MEDS ORDERED: HEPARIN SODIUM 1,000 UN/ML (10ML VL) ONE (07:13)
[2022-02-25] MEDS ORDERED: fentaNYL (PF) 50 MCG/ML 2 ML AMP IV ONE ×2 (07:25→09:35)
[2022-02-25] MEDS ORDERED: LIDOCAINE 1% INJ 10MG/ML (5 ML VIAL-PF) SQ ONE ×3 (07:27→09:35)
[2022-02-25] MEDS: MIDAZOLAM 2 MG/2 ML VIAL IVP ONE ×2 (07:27→07:33)
[2022-02-25] MEDS ORDERED: VERAPAMIL SYRINGE (5 MG/10 ML) INTRAARTER ONE ×3 (07:30→09:36)
[2022-02-25] MEDS ORDERED: HEPARIN SODIUM 1,000 UN/ML (10ML VL) IV ONE ×2 (07:33→09:39)
[2022-02-25] MEDS ORDERED: NITROGLYCERIN 1000MCG/10ML SYRINGE INTRACORON ONE (07:39)
[2022-02-25] MEDS ORDERED: IOPAMIDOL-370 125ML BTL INJ ONE ×2 (07:57→10:12)
[2022-02-25] MEDS ORDERED: RX INFO: IV CONTRAST WAS GIVEN 1 EACH MISC MISCELLANE PRN ×2 (08:09→10:21)
[2022-02-25] MEDS ORDERED: MAG HYDROX/AL HYDROX/SIMETH 30 ML CUP PO PRN ×2 (08:09→10:21)
[2022-02-25] MEDS ORDERED: ZOLPIDEM 5 MG TAB PO PRN ×2 (08:09→10:21)
[2022-02-25] MEDS ORDERED: NITROGLYCERIN SL TABS 0.4 MG TAB SUBLINGUAL PRN ×2 (08:09→10:21)
[2022-02-25] MEDS ORDERED: ATROPINE SULFATE 0.1 MG/ML 10ML SYRINGE IV PRN ×2 (08:09→10:21)
[2022-02-25] MEDS ORDERED: SODIUM CHLORIDE 0.9% 1,000 ML in EMPTY BAG 1 BAG IV SCH ×2 (08:15→10:30)
--- NOTE | 2022-02-25 08:20 | P.CARDCATH ---
Date of Procedure: 02/25/22 Description of Procedure: Cardiac Catheterization: The patient is a 56-year-old male with a known history of hypertension, hyperlipidemia, diabetes mellitus and a history of CAD who presents with an acute stent thrombosis on February 08, underwent stenting of the proximal LAD and was found to have significant obstructive disease involving the RCA. He is admitted today to undergo PCI of the RCA. Recommendations were made regarding cardiac catheterization, the risks and the complications were discussed with the patient who is in full understanding and agreement. Procedure Description: Patient was brought to clinical laboratory medical director in fasting semi-sedated state after receiving Fentanyl and Benadryl achieiving moderate conscious sedated state. Using Xylocaine Anesthesia and Seldinger technique, a 6-Togolese sheath was introduced in the right radial artery . Subsequently, selective coronary angiography was performed using a 5-Togolese 3.5 bend left Dante catheter and 6-Togolese 0.75 AL guiding catheter. Multiple views of the coronary artery including hemiaxial views were obtained. After performing PCI of the RCA images of the left coronary system were performed.. Following that, catheter and sheath were removed. Hemostasis was obtained with deployment of TR band . There was no immediate complication. Patient was returned to room in stable condition. Of note, the patient received a total of 5000 units of intravenous heparin as well as intra-arterial verapamil. There was no immediate complications. He had mild chest discomfort that resolved at the end of the procedure. His ACT was followed. He was continued on Brilinta. Findings: Left main: This is a large size vessel, bifurcating left circumflex and LAD, distal left main has 10% plaque. LAD: This is a large size vessel, reaching to the apex with a wrap around the apex segment. The stented segment are patent with no evidence of thrombosis. Proximal to the stent this 20% plaque. The mid segment has intimal disease of 20-30 % Left circumflex: This is a nondominant vessel giving rise to 2 obtuse marginal branch, the first obtuse marginal branch has 70-80% stenosis at the takeoff, the second obtuse marginal branch is totally occluded at the ostium. RCA: This is a large dominant vessel, bifurcating into PDA and PLV. The proximal segment of the RCA has complex area of stenosis and a long segment up to 90%, the distal vessel has no high-grade stenosis. Left Ventriculogram: Not performed PCI: After cannulating the ostium of the RCA, a 0.014 BMW J-wire was positioned in the distal RCA subsequently a 2.5 x 12 NC Treck was advanced and inflations at 8 ford were done, after removing the balloon 3.25 x 23 mm Xience ijeoma point was advanced and deployed at 16 ford. After removing the balloon 3.5 x 20 mm NC Treck was advanced and one inflation at 12 ford was done. After appropriate wait the balloon and the wire withdrawn and the guiding catheter. Images were obtained and revealed stable successful stenting. At that time images of the left coronary system were performed. Conclusion: 1. Patent stented segment of the LAD with no evidence of in-stent restenosis 2. Totally occluded OM 2 with significant disease at the takeoff of OM1 3. Critical stenosis of the proximal RCA in a long segment 4. Successful stenting of the proximal RCA with reduction of stenosis from 90% to 0%. Recommendations: The patient will continue on aspirin and Brilinta for at least one year in addition to aggressive coronary risks modification. He will be followed regarding the need to undergo revascularization of his first obtuse marginal branch. The findings and recommendations were discussed with the patient and his family, they are in full understanding and agreement. Duration of sedation is 33 minutes.
[2022-02-25] MEDS ORDERED: HYDROmorphone 1 MG/ML 1 ML SYRINGE ONE (08:57)
[2022-02-25] MEDS ORDERED: IV FLUID CONTINUATION 500 ML IV ONE (09:35)
--- NOTE | 2022-02-25 10:28 | P.CARDCATH ---
Date of Procedure: 02/25/22 Description of Procedure: PERCUTANEOUS TRANSLUMINAL CORONARY ANGIOPLASTY CLINICAL INFORMATION: The patient is a 56-year-old male with a known history of CAD her earlier during the day underwent stenting of his mid RCA and started complaining of acute chest discomfort with diaphoresis but no EKG changes. R ecommendations were made regarding emergent coronary angioplasty stenting if indicated. The procedure as well as the risks and the complications were discussed with the patient who was in full understanding and agreement. PROCEDURE: A 6 Faroese 0.75 AL guiding catheter was introduced into the system. After cannulating the right coronary ostium, a 0.014 BMW J was advanced across the lesion and positioned distally. Following that a 2.5 x 12 mm Treck balloon was advanced and inflated at 8 atmosphere. Following that a 3.25 x 18 mm Xience ijeoma point stent was deployed. It was dilated at 16. Distal to that stent another 3.25 x 12 mm Xience ijeoma point stent was deployed and dilated at 16 ford. Following that an IVUS [place] eye catheter was introduced and images were obtained, after removing the catheter 4.0 x 15 mm NC Treck balloon was advanced and multiple inflations at 12 ford were done. Repeat imaging with the [place] artery catheter was done. After the last inflation, after appropriate wait, the balloon and the guidewire were withdrawn back into the guiding catheter. Images were obtained and repeated. Those images reveal stable successful stenting. At that point, the guiding catheter, the balloon, and guidewire were removed. The sheath was removed. Hemostasis was obtained with diploma and 50%. There were no immediate complications. The patient was returned to the room in stable condition. Of note, the patient received 7000 units of heparin . His ACT was followed. There was no immediate complications. A chest discomfort and diaphoresis resolved at the end of the procedure RESULTS: Successful stenting of the mid RCA with reduction of stenosis from 100% to 0 % with acute thrombosis. LVEDP 20-25 mmHg RECOMMENDATIONS: The patient will be continued on aspirin and Brilinta for 1 year without interruption. The findings and recommendations were discussed with the patient and the family, they are in full understanding and agreement. Duration of sedation: 40 minutes
[2022-02-25] MEDS: PANTOPRAZOLE 40 MG TABLET PO SCH (13:46)
[2022-02-25] MEDS: carvediloL 6.25 MG TAB PO SCH ×2 (13:46→16:49)
[2022-02-25] MEDS: SPIRONOLACTONE 25 MG TAB PO SCH (13:47)
[2022-02-25] MEDS: lisinopriL 10 MG TAB PO SCH (15:14)
[2022-02-25] MEDS: TICAGRELOR 90 MG TAB PO SCH ×2 (15:15→20:53)
[2022-02-25 16:27] LABS: Glucose,Whole Blood 152 mg/dL (70-110)
[2022-02-25] MEDS: INSULIN ASPART (NovoLOG) 100 UNIT/ML VIAL SQ SCH ×2 (16:48→20:53)
[2022-02-25] MEDS: ALPRAZolam 0.5 MG TAB PO PRN (18:12)
[2022-02-25 19:52] LABS: Glucose,Whole Blood 255 mg/dL (70-110)
[2022-02-25] MEDS ORDERED: ATORVASTATIN 80 MG TAB PO SCH (21:00)
[2022-02-26] MEDS: ALPRAZolam 0.5 MG TAB PO PRN (00:34)
[2022-02-26 06:18] LABS: Glucose,Whole Blood 126 mg/dL (70-110)
[2022-02-26] MEDS: INSULIN ASPART (NovoLOG) 100 UNIT/ML VIAL SQ SCH (06:18)
[2022-02-26] MEDS: carvediloL 6.25 MG TAB PO SCH (06:20)
--- NOTE | 2022-02-26 07:39 | P.PN ---
Subjective Progress Note Date: 02/26/22 PROGRESS NOTE The patient is a 56-year-old male with a known history of CAD status post stenting of the LAD recently who had an obstructive disease in the right coronary artery. he underwent stenting of the right coronary artery proximal segment about 2 hours after the procedure he had acute closure with what appears to be distal edge dissection and underwent stenting of that segment. he's feeling well today. ambulating without difficulty. he denies any chest discomfort, dizziness or palpitations. Medications: Brilinta 90 mg twice a day, Coreg 6.25 mg twice a day, lisinopril 10 mg daily, Lipitor 80 mg daily, aspirin once a day, Bumex 1 mg daily PHYSICAL EXAMINATION: Blood pressure 142/70 heart rate 60 LUNGS: Clear to auscultation HEART: Regular rate and rhythm, S1, S2. No S3. No systolic murmur ABDOMEN: Soft, nontender, no organomegaly EXTREMETIES: No edema, right and left radial pulse intact LAB: EKG shows sinus mechanism with evidence of anterior wall myocardial infarction with no new changes IMPRESSION: 1. Status post stenting of the right coronary artery 2. Post LAD stenting 3. Ischemic cardiomyopathy 4. History of diabetes PLAN: 1. Continue present therapy 2. Discharged home today 3. And follow-up in one week 4. Smoking cessation Objective - Vital Signs Vital signs: Vital Signs Temp 97.6 F 02/26/22 06:00 Pulse 61 02/26/22 06:00 Resp 20 02/26/22 06:00 BP 142/75 02/26/22 06:00 Pulse Ox 99 02/26/22 06:00 FiO2 Intake & Output 02/25/22 02/26/22 02/26/22 18:59 06:59 18:59 Intake Total 545 240 Balance 545 240 Weight 117.1 kg Intake: IV 125 Oral 420 240 Other: Voiding Method Toilet Toilet # Voids 1 1 - Labs Labs: Abnormal Lab Results - Last 24 Hours (Table) 02/25/22 02/25/22 02/26/22 Range/Units 16:25 19:51 06:17 POC Glucose (mg/dL) 152 H 255 H 126 H (70-110) mg/dL
[2022-02-26 08:06] VITALS: BP 138/78; PULSE 57; RESP 17; TEMP 98.4
[2022-02-26 08:58] LABS: African American GFR (CKD) >90 (>60 ml/min/1.73 sqM); Anion Gap 6 mmol/L; Blood Urea Nitrogen 14 mg/dL (9-20); Calcium 8.6 mg/dL (8.4-10.2); Carbon Dioxide 22 mmol/L (22-30); Chloride 111 mmol/L (98-107); Glucose 135 mg/dL (74-99); Non-African American GFR(CKD) >90 (>60 ml/min/1.73 sqM); Potassium 4.5 mmol/L (3.5-5.1); Sodium 139 mmol/L (137-145)
[2022-02-26] MEDS ORDERED: ASPIRIN 81 MG PO SCH (09:00)
[2022-02-26] MEDS: lisinopriL 10 MG TAB PO SCH (09:55)
[2022-02-26] MEDS: PANTOPRAZOLE 40 MG TABLET PO SCH (09:55)
[2022-02-26] MEDS: SPIRONOLACTONE 25 MG TAB PO SCH (09:55)
[2022-02-26] MEDS: TICAGRELOR 90 MG TAB PO SCH (09:55)
== END 2022-02-26 10:03 | disposition home or self-care (01) ==
LOC: CATHCVL 06:16 → 3SCARD 10:09 → CATHCVL 02-26 10:03
PROVIDERS: ATTEND Internal Medicine Interventional Cardiology
DX: I25.10 Atherosclerotic heart disease of native coronary artery without angina pectoris (principal); I25.82 Chronic total occlusion of coronary artery; I25.42 Coronary artery dissection; I10 Essential (primary) hypertension; I25.5 Ischemic cardiomyopathy; E11.9 Type 2 diabetes mellitus without complications; F17.210 Nicotine dependence, cigarettes, uncomplicated; E78.2 Mixed hyperlipidemia; Z20.822 Contact with and (suspected) exposure to COVID-19; Z95.5 Presence of coronary angioplasty implant and graft; Z79.82 Long term (current) use of aspirin; Z79.899 Other long term (current) drug therapy; Z79.02 Long term (current) use of antithrombotics/antiplatelets; Z79.84 Long term (current) use of oral hypoglycemic drugs
CPT/HCPCS: 92978; 93454; 80048; 87635; C9600; C1769 ×4; C1887 ×2; C1894; C1725 ×4; C1753; C1874 ×3; J2250; J2001; J3010; J1644; J1170; Q9967

== ENCOUNTER 2022-06-18 23:12 | Inpatient (IN) | payer BC ==
--- NOTE | 2022-06-18 23:18 | ED ---
SOB HPI - General Chief Complaint: Shortness of Breath Stated Complaint: Difficulty Breathing Time Seen by Provider: 06/18/22 23:13 Source: patient, EMS, RN notes reviewed, old records reviewed Mode of arrival: EMS Limitations: no limitations, altered mental status, physical limitation - History of Present Illness MD Complaint: shortness of breath, chest pain, anxiety -: hour(s) Severity: severe Severity scale (1-10): 10 Consistency: constant Improves With: nothing Worsens With: nothing Context: recent URI, anxiety Associated Symptoms: chest pain, pain with inspiration - Related Data Home Medications Medication Instructions Recorded Confirmed Bumetanide [Bumex] 1 mg PO DAILY 02/08/22 02/25/22 Pantoprazole [Protonix] 40 mg PO DAILY 02/08/22 02/25/22 metFORMIN HCL ER [Glucophage XR] 500 mg PO DAILY 02/08/22 02/25/22 Previous Rx's Medication Instructions Recorded Atorvastatin [Lipitor] 80 mg PO HS #90 tab 02/08/22 Nitroglycerin Sl Tabs [Nitrostat] 0.4 mg SUBLINGUAL Q5M PRN #25 tab 02/08/22 Ticagrelor [Brilinta] 90 mg PO BID 90 Days #180 tab 02/08/22 Aspirin EC [Ecotrin Low Dose] 81 mg PO DAILY #30 tab 02/10/22 Spironolactone [Aldactone] 25 mg PO DAILY #30 tab 02/10/22 carvediloL [Coreg] 6.25 mg PO BID #60 tablet 02/10/22 lisinopriL [Zestril] 10 mg PO DAILY #30 tab 02/10/22 Allergies Allergy/AdvReac Type Severity Reaction Status Date / Time No Known Allergies Allergy Verified 02/25/22 06:39 Review of Systems ROS Statement: Those systems with pertinent positive or pertinent negative responses have been documented in the HPI. ROS Other: All systems not noted in ROS Statement are negative. Past Medical History Past Medical History: Coronary Artery Disease (CAD), Diabetes Mellitus, Hyperlipidemia, Hypertension, Myocardial Infarction ([place]) Last Myocardial Infarction Date:: 02/08/22 History of Any Multi-Drug Resistant Organisms: None Reported Past Surgical History: Heart Catheterization With Stent, Orthopedic Surgery Additional Past Surgical History / Comment(s): 02/01/22 right radial heart cath with stent, 02/08/22 left radial heart cath with stent, right shoulder bone spur removed. Past Anesthesia/Blood Transfusion Reactions: No Reported Reaction Date of Last Stent Placement:: 02/25/2022 Past Psychological History: No Psychological Hx Reported Smoking Status: Current every day smoker Past Alcohol Use History: Occasional Additional Past Alcohol Use History / Comment(s): SMOKES < 1 PPD-TRYING TO QUIT- HAS BEEN SMOKING SINCE AGE 16. Past Drug Use History: Marijuana Additional Drug Use History / Comment(s): Uses marijuana recreationally. - Past Family History Father Family Medical History: Coronary Artery Disease (CAD) General Exam Limitations: no limitations General appearance: anxious, in distress Head exam: Present: atraumatic, normocephalic, normal inspection Eye exam: Present: normal appearance, PERRL, EOMI. Absent: scleral icterus, conjunctival injection, periorbital swelling ENT exam: Present: normal exam, mucous membranes moist Neck exam: Present: normal inspection. Absent: tenderness, meningismus, lymphadenopathy Respiratory exam: Present: respiratory distress, accessory muscle use, decreased breath sounds, prolonged expiratory. Absent: wheezes, rales, rhonchi, stridor Cardiovascular Exam: Present: tachycardia, normal heart sounds. Absent: systolic murmur, diastolic murmur, rubs, gallop, clicks GI/Abdominal exam: Present: soft, normal bowel sounds. Absent: distended, ten derness, guarding, rebound, rigid Extremities exam: Present: normal inspection, full ROM, normal capillary refill. Absent: tenderness, pedal edema, joint swelling, calf tenderness Back exam: Present: normal inspection Neurological exam: Present: alert, oriented X3, CN II-XII intact Psychiatric exam: Present: normal affect, normal mood Skin exam: Present: warm, dry, intact, normal color. Absent: rash Course Vital Signs 06/18/22 06/18/22 06/18/22 23:14 23:20 23:25 Temperature 98.4 F Pulse Rate 116 H 98 Respiratory 28 H 30 H Rate Blood Pressure 197/119 174/98 O2 Sat by Pulse 80 L 94 L Oximetry Fraction of 40 Inspired Oxygen (FIO2) 06/18/22 06/19/22 06/19/22 23:42 00:02 00:38 Temperature Pulse Rate 85 90 78 Respiratory 24 Rate Blood Pressure 138/68 O2 Sat by Pulse 95 Oximetry Fraction of Inspired Oxygen (FIO2) 06/19/22 01:16 Temperature Pulse Rate 84 Respiratory 20 Rate Blood Pressure O2 Sat by Pulse Oximetry Fraction of Inspired Oxygen (FIO2) Medical Decision Making - Lab Data Result diagrams: 06/18/22 23:24 06/18/22 23:24 Lab Results 06/18/22 06/18/22 06/18/22 Range/Units 23:24 23:24 23:24 WBC 17.8 H (3.8-10.6) k/uL RBC 4.63 (4.30-5.90) m/uL Hgb 14.0 (13.0-17.5) gm/dL Hct 41.3 (39.0-53.0) % MCV 89.2 (80.0-100.0) fL MCH 30.2 (25.0-35.0) pg MCHC 33.9 (31.0-37.0) g/dL RDW 12.9 (11.5-15.5) % Plt Count 243 (150-450) k/uL MPV 8.3 Neutrophils % 82 % Lymphocytes % 9 % Monocytes % 6 % Eosinophils % 2 % Basophils % 0 % Neutrophils # 14.6 H (1.3-7.7) k/uL Lymphocytes # 1.6 (1.0-4.8) k/uL Monocytes # 1.0 (0-1.0) k/uL Eosinophils # 0.4 (0-0.7) k/uL Basophils # 0.1 (0-0.2) k/uL PT 11.1 (9.0-12.0) sec INR 1.0 (<1.2) APTT 21.3 L (22.0-30.0) sec Sodium 142 (137-145) mmol/L Potassium 4.6 (3.5-5.1) mmol/L Chloride 110 H (98-107) mmol/L Carbon Dioxide 25 (22-30) mmol/L Anion Gap 7 mmol/L BUN 17 (9-20) mg/dL Creatinine 1.17 (0.66-1.25) mg/dL Est GFR (CKD-EPI)AfAm 80 (>60 ml/min/1.73 sqM) Est GFR (CKD-EPI)NonAf 69 (>60 ml/min/1.73 sqM) Glucose 151 H (74-99) mg/dL Calcium 8.9 (8.4-10.2) mg/dL Magnesium 1.7 (1.6-2.3) mg/dL Total Bilirubin 1.1 (0.2-1.3) mg/dL AST 40 (17-59) U/L ALT 38 (4-49) U/L Alkaline Phosphatase 83 (38-126) U/L Troponin I (0.000-0.034) ng/mL NT-Pro-B Natriuret Pep pg/mL Total Protein 7.5 (6.3-8.2) g/dL Albumin 4.4 (3.5-5.0) g/dL Coronavirus (PCR) (Not Detectd) 06/18/22 06/18/22 06/19/22 Range/Units 23:24 23:24 01:14 WBC (3.8-10.6) k/uL RBC (4.30-5.90) m/uL Hgb (13.0-17.5) gm/dL Hct (39.0-53.0) % MCV (80.0-100.0) fL MCH (25.0-35.0) pg MCHC (31.0-37.0) g/dL RDW (11.5-15.5) % Plt Count (150-450) k/uL MPV Neutrophils % % Lymphocytes % % Monocytes % % Eosinophils % % Basophils % % Neutrophils # (1.3-7.7) k/uL Lymphocytes # (1.0-4.8) k/uL Monocytes # (0-1.0) k/uL Eosinophils # (0-0.7) k/uL Basophils # (0-0.2) k/uL PT (9.0-12.0) sec INR (<1.2) APTT (22.0-30.0) sec Sodium (137-145) mmol/L Potassium (3.5-5.1) mmol/L Chloride (98-107) mmol/L Carbon Dioxide (22-30) mmol/L Anion Gap mmol/L BUN (9-20) mg/dL Creatinine (0.66-1.25) mg/dL Est GFR (CKD-EPI)AfAm (>60 ml/min/1.73 sqM) Est GFR (CKD-EPI)NonAf (>60 ml/min/1.73 sqM) Glucose (74-99) mg/dL Calcium (8.4-10.2) mg/dL Magnesium (1.6-2.3) mg/dL Total Bilirubin (0.2-1.3) mg/dL AST (17-59) U/L ALT (4-49) U/L Alkaline Phosphatase (38-126) U/L Troponin I 0.014 (0.000-0.034) ng/mL NT-Pro-B Natriuret Pep 3440 pg/mL Total Protein (6.3-8.2) g/dL Albumin (3.5-5.0) g/dL Coronavirus (PCR) Not Detected (Not Detectd) - EKG Data -: EKG Interpreted by Me (EKG rate 99 GA 144 QRS 98 QTc 397 ) Critical Care Time Critical Care Time: Yes Total Critical Care Time: 31 Disposition Clinical Impression: Acute pulmonary edema, Community acquired pneumonia, Acute respiratory failure, Hypoxia, Acute non-ST elevation myocardial infarction (NSTEMI) Disposition: ADMITTED IP TO THIS HOSP Condition: Fair Is patient prescribed a controlled substance at d/c from ED?: No Time of Disposition: 01:15
[2022-06-18] MEDS ORDERED: IPRATROPIUM-ALBUTEROL 3 ML NEB INHALATION STA (23:20)
[2022-06-18] MEDS ORDERED: ENALAPRILAT 1.25 MG/ML 1 ML VIAL IVP STA (23:21)
[2022-06-18] MEDS ORDERED: MORPHINE SULFATE 4 MG/ML SYRINGE IVP STA (23:32)
[2022-06-18 23:35] LABS: Basophils # (A) 0.1 k/uL (0-0.2); Basophils % (A) 0 %; Eosinophils # (A) 0.4 k/uL (0-0.7); Eosinophils % (A) 2 %; HCT 41.3 % (39.0-53.0); Lymphocytes # (A) 1.6 k/uL (1.0-4.8); Lymphocytes % (A) 9 %; MCH 30.2 pg (25.0-35.0); MCHC 33.9 g/dL (31.0-37.0); MCV 89.2 fL (80.0-100.0); Mean Platelet Volume 8.3; Monocytes % (A) 6 %; Neutrophils # (A) 14.6 k/uL (1.3-7.7); Neutrophils % (A) 82 %; Platelet Count 243 k/uL (150-450); RBC 4.63 m/uL (4.30-5.90); RDW 12.9 % (11.5-15.5); WBC 17.8 k/uL (3.8-10.6)
--- NOTE | 2022-06-18 23:41 | XR ---
EXAMINATION TYPE: XR chest 1V portable DATE OF EXAM: 06/18/2022 COMPARISON: NONE HISTORY: Short of breath TECHNIQUE: Single view FINDINGS: There is pulmonary interstitial edema. Heart is top normal in size. No pleural effusion. Th e bony thorax is intact. There are chest leads. No pneumothorax. IMPRESSION: There is some pulmonary interstitial infiltrate which is increased compared to last exam and could be worsening pulmonary fibrosis. Superimposed acute interstitial pneumonia also possible.
[2022-06-18 23:54] LABS: Prothrombin Time 11.1 sec (9.0-12.0)
[2022-06-19 00:03] LABS: Albumin 4.4 g/dL (3.5-5.0); Calcium 8.9 mg/dL (8.4-10.2); Magnesium 1.7 mg/dL (1.6-2.3); Potassium 4.6 mmol/L (3.5-5.1); Total Bilirubin 1.1 mg/dL (0.2-1.3); Total Protein 7.5 g/dL (6.3-8.2)
[2022-06-19 00:08] LABS: Partial Thromboplastin Time 21.3 sec (22.0-30.0)
[2022-06-19] MEDS ORDERED: AZITHROMYCIN 500 MG in SODIUM CHLORIDE 0.9% 250 ML IVPB ONE (01:00)
[2022-06-19] MEDS ORDERED: NALOXONE 0.4 MG/ML 1 ML VIAL IV PRN (01:13)
[2022-06-19] MEDS ORDERED: ONDANSETRON 4 MG/2 ML VIAL IVP PRN (01:13)
[2022-06-19] MEDS ORDERED: MORPHINE SULFATE 4 MG/ML SYRINGE IV PRN (01:13)
[2022-06-19 06:15] LABS: Glucose,Whole Blood 191 mg/dL (70-110)
[2022-06-19] MEDS: FUROSEMIDE 10 MG/ML 4 ML VIAL IV SCH ×2 (09:18→21:25)
[2022-06-19] MEDS: PANTOPRAZOLE 40 MG/10 ML VIAL IV SCH (09:18)
[2022-06-19] MEDS: CLOPIDOGREL 75 MG TAB PO SCH (10:59)
[2022-06-19] MEDS: ASPIRIN 81 MG PO SCH (10:59)
[2022-06-19 11:45] LABS: Glucose,Whole Blood 281 mg/dL (70-110)
--- NOTE | 2022-06-19 12:11 | P.CRDCN ---
History of Present Illness History of present illness: This is a 56 year old male with a past medical history of recent NSTEMI coronary artery disease s/p PCI recently to mid RCA on 02/25/2022, LAD 02/08/2022, and LAD on 02/01/2022, and PCI 13 years ago at [facility], Type 2 Diabetes, Hypertension, hyperlipidemia, chronic nicotine dependence (smoking 1/2 PPD, now down to 5-6 cigarettes per day). He follows with Dr. Stevens. We have in consultation for patient for CHF. Patient presents emergency department with complaints of shortness of breath. He states that recently he has missed some of his medications, he ran out of his prescriptions and was not taking his Bumex as well as some other medications. Over the past few days since has been having increased shortness of breath and lower extremity edema. He denies any chest pain, palpitations, lightheadedness, dizziness, syncope or near syncope. He states that he took nitroglycerin at home with no relief. He was started on IV Lasix, oxygen supplementation and breathing treatments in the emergency department and states that his breathing has improved. His symptoms are not similar from his prior [place]. He continues to smoke, currently less than a PPD. He has been smoking for 35 years. He endorses occasional alcohol drinking beers. Occassionally uses marijuana. DIAGNOSTICS * EKG reveals sinus rhythm HR 99, non-specific ST-T wave abnormalities inferiorly and anteriorly previous EKG with similar findings * Telemetry tracings indicate sinus mechanism * Chest xray reported some pulmonary interstitial infiltrate increased compared to last exam, could be pulmonary fibrosis * Laboratory reviewed, WBC 17.8, include 14, platelets 243, sodium 142, potassium 4.6, BUN 17, serum creatinine 1.1, magnesium 1.7, troponin initially negative, repeat 0.12,0.109 proBNP 3440, covid-19 negative * Cardiac catheterization 02/08/2022- Acute thrombosis of the proximal LAD stent, Critical stenosis in the proximal RCA, Chronically occluded second OM, Mild distal left main disease. Patient underwent PCI LAD. * 02/25/2022- Patient underwent stenting of the mid RCA * Echocardiogram 02/08/2022- EF 30%, large apical akinesis, grade 3 diastolic dysfunction. * Echocardiogram in the office 04/29/2022 revealed an EF of 42%, mild tricuspid regurgitation, mild mitral regurgitation REVIEW OF SYSTEMS At the time of my exam: CONSTITUTIONAL: Denies fever or chills. CARDIOVASCULAR: Denies chest pain +shortness of breath, +LE edema Denies rthopnea, PND or palpitations. RESPIRATORY: Denies cough. GASTROINTESTINAL: Denies abdominal pain, diarrhea, constipation, nausea or vomiting. MUSCULOSKELETAL: Denies myalgias. NEUROLOGIC: Denies numbness, tingling, headacbe or weakness. ENDOCRINE: Denies fatigue, weight change, polydipsia or polyurina. GENITOURINARY: Denies burning, hematuria or urgency with micturation. HEMATOLOGIC: Denies history of anemia or bleeding. PHYSICAL EXAMINATION Vitals reviewed CONSTITUTIONAL: No apparent distress. HEENT: Head is normocephalic. Pupils are equal, round. Sclerae anicteric. Mucous membranes of the mouth are moist. No JVD. No carotid bruit. CHEST EXAMINATION: Lungs are crackles bilateral bases to auscultation. No chest wall tenderness is noted on palpation or with deep breathing. HEART EXAMINATION: Regular rate and rhythm. S1, S2 heard. Systolic murmur noted. No gallops or rub. ABDOMEN: Soft, nontender. Positive bowel sounds. EXTREMITIES: 2+ peripheral pulses, no lower extremity edema and no calf tenderness. NEUROLOGIC EXAMINATION: Patient is awake, alert and oriented x3. ASSESSMENT Acute on chronic heart failure with reduced ejection fraction, EF 42% in the office 04/2022, ran out of his diuretics at home Coronary artery disease s/p recent PCI RCA 02/25/2022, PCI LAD 02/08/2022 secondary to acute thrombosis of LAD stent, and PCI LAD on 02/01/2022, and PCI 13 years ago at [facility] Type 2 Diabetes Hypertension Hyperlipidemia Chronic nicotine dependence PLAN IV Lasix 40mg BID Monitor I/Os, daily weights, renal function and electrolytes Continue dual antiplatelet therapy with aspirin and Plavix Continue home carvedilol, lisinopril, Aldactone Check limited echo to assess LV function Further recommendations based on clinical course Nurse practitioner note has been reviewed by physician. Signing provider agrees with the documented findings, assessment, and plan of care. Past Medical History Past Medical History: Coronary Artery Disease (CAD), Diabetes Mellitus, Hyperlipidemia, Hypertension, Myocardial Infarction ([place]) Last Myocardial Infarction Date:: 02/08/22 History of Any Multi-Drug Resistant Organisms: None Reported Past Surgical History: Heart Catheterization With Stent, Orthopedic Surgery Additional Past Surgical History / Comment(s): 02/01/22 right radial heart cath with stent, 02/08/22 left radial heart cath with stent, right shoulder bone spur removed. Past Anesthesia/Blood Transfusion Reactions: No Reported Reaction Date of Last Stent Placement:: 02/25/2022 Past Psychological History: No Psychological Hx Reported Smoking Status: Current every day smoker Past Alcohol Use History: Occasional Additional Past Alcohol Use History / Comment(s): SMOKES < 1 PPD-TRYING TO QUIT- HAS BEEN SMOKING SINCE AGE 16. Past Drug Use History: Marijuana Additional Drug Use History / Comment(s): Uses marijuana recreationally. - Past Family History Father Family Medical History: Coronary Artery Disease (CAD) Medications and Allergies Home Medications Medication Instructions Recorded Confirmed Type Atorvastatin [Lipitor] 80 mg PO HS #90 tab 02/08/22 02/25/22 Rx Bumetanide [Bumex] 1 mg PO DAILY 02/08/22 02/25/22 History Nitroglycerin Sl Tabs [Nitrostat] 0.4 mg SUBLINGUAL Q5M PRN #25 tab 02/08/22 02/22/22 Rx Pantoprazole [Protonix] 40 mg PO DAILY 02/08/22 02/25/22 History Ticagrelor [Brilinta] 90 mg PO BID 90 Days #180 tab 02/08/22 02/25/22 Rx metFORMIN HCL ER [Glucophage XR] 500 mg PO DAILY 02/08/22 02/25/22 History Aspirin EC [Ecotrin Low Dose] 81 mg PO DAILY #30 tab 02/10/22 02/25/22 Rx Spironolactone [Aldactone] 25 mg PO DAILY #30 tab 02/10/22 02/25/22 Rx carvediloL [Coreg] 6.25 mg PO BID #60 tablet 02/10/22 02/25/22 Rx lisinopriL [Zestril] 10 mg PO DAILY #30 tab 02/10/22 02/25/22 Rx Allergies Allergy/AdvReac Type Severity Reaction Status Date / Time No Known Allergies Allergy Verified 02/25/22 06:39 Physical Exam Vitals: Vital Signs Temp Pulse Pulse Resp BP BP Pulse Ox 06/19/22 04:00 98.3 F 62 21 128/60 97 06/19/22 02:00 97.9 F 82 24 142/75 95 06/19/22 01:16 84 20 06/19/22 00:38 78 24 138/68 95 06/19/22 00:02 90 06/18/22 23:42 85 06/18/22 23:25 98 30 H 174/98 94 L 06/18/22 23:20 06/18/22 23:14 98.4 F 116 H 28 H 197/119 80 L FiO2 06/19/22 04:00 06/19/22 02:00 06/19/22 01:16 06/19/22 00:38 06/19/22 00:02 06/18/22 23:42 06/18/22 23:25 06/18/22 23:20 40 06/18/22 23:14 Intake and Output 06/18/22 06/19/22 06/19/22 22:59 06:59 14:59 Other: Voiding Method Toilet Urinal # Voids 1 # Bowel Movements 1 Weight 113.398 kg Results 06/18/22 23:24 06/18/22 23:24 Cardiac Enzymes 06/18/22 06/18/22 06/19/22 Range/Units 23:24 23:24 03:58 AST 40 (17-59) U/L Troponin I 0.014 0.126 H* (0.000-0.034) ng/mL Coagulation 06/18/22 Range/Units 23:24 PT 11.1 (9.0-12.0) sec APTT 21.3 L (22.0-30.0) sec CBC 06/18/22 Range/Units 23:24 WBC 17.8 H (3.8-10.6) k/uL RBC 4.63 (4.30-5.90) m/uL Hgb 14.0 (13.0-17.5) gm/dL Hct 41.3 (39.0-53.0) % Plt Count 243 (150-450) k/uL Comprehensive Metabolic Panel 06/18/22 Range/Units 23:24 Sodium 142 (137-145) mmol/L Potassium 4.6 (3.5-5.1) mmol/L Chloride 110 H (98-107) mmol/L Carbon Dioxide 25 (22-30) mmol/L BUN 17 (9-20) mg/dL Creatinine 1.17 (0.66-1.25) mg/dL Glucose 151 H (74-99) mg/dL Calcium 8.9 (8.4-10.2) mg/dL AST 40 (17-59) U/L ALT 38 (4-49) U/L Alkaline Phosphatase 83 (38-126) U/L Total Protein 7.5 (6.3-8.2) g/dL Albumin 4.4 (3.5-5.0) g/dL Current Medications Generic Name Dose Route Start Last Admin Trade Name Freq PRN Reason Stop Dose Admin Ceftriaxone Sodium 1 gm/ 50 mls @ 100 mls/hr 06/19/22 09:00 Sodium Chloride IVPB Q12HR MAXINE Protocol Azithromycin 500 mg/ Sodium 250 mls @ 250 mls/hr 06/19/22 21:00 Chloride IVPB 06/21/22 21:59 DAILY@2100 [facility] Protocol Morphine Sulfate 4 mg 06/19/22 01:13 Morphine Sulfate 4 Mg/Ml Syringe IV Q4HR PRN Severe Pain (Scale 7 to 10) Naloxone HCl 0.2 mg 06/19/22 01:13 Naloxone 0.4 Mg/Ml 1 Ml Vial IV Q2M PRN Opioid Reversal Ondansetron HCl 4 mg 06/19/22 01:13 Ondansetron 4 Mg/2 Ml Vial IVP Q8HR PRN Nausea And Vomiting Pantoprazole Sodium 40 mg 06/19/22 09:00 Pantoprazole 40 Mg/10 Ml Vial IV DAILY [facility] Intake and Output 06/18/22 06/19/22 06/19/22 22:59 06:59 14:59 Other: Voiding Method Toilet Urinal # Voids 1 # Bowel Movements 1 Weight 113.398 kg 06/18/22 23:24 06/18/22 23:24
--- NOTE | 2022-06-19 14:46 | P.CNPUL ---
History of Present Illness Consult date: 06/19/22 Requesting physician: Deniz Meza Reason for consult: dyspnea, abnormal CXR/CT Chief complaint: Shortness of breath, chest discomfort, anxiety History of present illness: This is a pleasant 57-year-old male patient with a known history of coronary artery disease with multiple stent placements, diabetes mellitus, hyperlipidemia, hypertension, chronic and ongoing tobacco dependence since age of 16, occasional marijuana use. He presented to the emergency department last evening with complaints of rather sudden onset of shortness of breath. He is also noted to have ischemic cardiac myopathy with ejection fraction 40%. He states he did run out of his diuretics at home. His x-ray reveals pulmonary interstitial infiltrates. White count 17.8. Hemoglobin 14.0. Sodium 142. Potassium 4.6. BUN 17. Creatinine 1.17. Glucose 151. Troponin 0.014, 0.126, 0.109. BNP 3440. Weinberg virus by PCR not detected. He is seen today in consultation on the selective care unit. He is currently sitting up in bed. Awake and alert in no acute distress. States he is already breathing better today compared to yesterday. He is maintaining O2 saturations in the 90s on 4 L/m per nasal cannula. He was initially on BiPAP 12/6 and 40% FiO2. He's been initiated on antibiotics form of ceftriaxone and azithromycin. Lasix 40 mg IVP every 12 hours. No accurate I&O but the patient states he is voiding frequently. Review of Systems REVIEW OF SYSTEMS: CONSTITUTIONAL: Denies any recent significant weight loss or weight gain. EYES: Denies change in vision. EARS, NOSE, MOUTH, THROAT: Denies headaches, denies sore throat. CARDIOVASCULAR: Denies chest pain, palpitations or syncopal episodes. RESPIRATORY: Positive for shortness of breath, cough, congestion no hemoptysis. GASTROINTESTINAL: Denies change in appetite, denies abdominal pain GENITOURINARY: Denies hematuria, denies infections. MUSKULOSKELETAL: Denies pain, denies swelling. INTEGUMENTARY: Denies rash, denies eczema. NEUROLOGICAL: Denies recent memory loss, no recent seizure activity. PSYCHIATRIC: Denies anxiety, denies depression. HEMATOLOGIC/LYMPHATIC: Denies anemia, denies enlarged lymph nodes. Past Medical History Past Medical History: Coronary Artery Disease (CAD), Diabetes Mellitus, Hyperlipidemia, Hypertension, Myocardial Infarction (DC) Last Myocardial Infarction Date:: 02/08/22 History of Any Multi-Drug Resistant Organisms: None Reported Past Surgical History: Heart Catheterization With Stent, Orthopedic Surgery Additional Past Surgical History / Comment(s): 02/01/22 right radial heart cath with stent, 02/08/22 left radial heart cath with stent, right shoulder bone spur removed. Past Anesthesia/Blood Transfusion Reactions: No Reported Reaction Date of Last Stent Placement:: 02/25/2022 Past Psychological History: No Psychological Hx Reported Smoking Status: Current every day smoker Past Alcohol Use History: Occasional Additional Past Alcohol Use History / Comment(s): SMOKES < 1 PPD-TRYING TO QUIT- HAS BEEN SMOKING SINCE AGE 16. Past Drug Use History: Marijuana Additional Drug Use History / Comment(s): Uses marijuana recreationally. - Past Family History Father Family Medical History: Coronary Artery Disease (CAD) Medications and Allergies Home Medications Medication Instructions Recorded Confirmed Type Atorvastatin [Lipitor] 80 mg PO HS #90 tab 02/08/22 06/19/22 Rx Bumetanide [Bumex] 1 mg PO DAILY 02/08/22 06/19/22 History Nitroglycerin Sl Tabs [Nitrostat] 0.4 mg SUBLINGUAL Q5M PRN #25 tab 02/08/22 06/19/22 Rx Pantoprazole [Protonix] 40 mg PO DAILY 02/08/22 06/19/22 History metFORMIN HCL ER [Glucophage XR] 500 mg PO DAILY 02/08/22 06/19/22 History Spironolactone [Aldactone] 25 mg PO DAILY #30 tab 02/10/22 06/19/22 Rx carvediloL [Coreg] 6.25 mg PO BID #60 tablet 02/10/22 06/19/22 Rx Clopidogrel [Plavix] 75 mg PO DAILY 06/19/22 06/19/22 History Isosorbide Mononitrate ER [Imdur] 30 mg PO DAILY 06/19/22 06/19/22 History Metoprolol Succinate (ER) [Toprol 50 mg PO DAILY 06/19/22 06/19/22 History Xl] lisinopriL [Zestril] 20 mg PO DAILY 06/19/22 06/19/22 History Allergies Allergy/AdvReac Type Severity Reaction Status Date / Time No Known Allergies Allergy Verified 06/19/22 12:06 Physical Exam Vitals: Vital Signs Temp Pulse Pulse Resp BP BP Pulse Ox 06/19/22 12:00 98.2 F 64 19 151/78 96 06/19/22 08:52 98 06/19/22 08:00 97.9 F 75 20 131/78 97 06/19/22 04:00 98.3 F 62 21 128/60 97 06/19/22 02:00 97.9 F 82 24 142/75 95 06/19/22 01:16 84 20 06/19/22 00:38 78 24 138/68 95 06/19/22 00:02 90 06/18/22 23:42 85 06/18/22 23:25 98 30 H 174/98 94 L 06/18/22 23:20 06/18/22 23:14 98.4 F 116 H 28 H 197/119 80 L FiO2 06/19/22 12:00 06/19/22 08:52 06/19/22 08:00 06/19/22 04:00 06/19/22 02:00 06/19/22 01:16 06/19/22 00:38 06/19/22 00:02 06/18/22 23:42 06/18/22 23:25 06/18/22 23:20 40 06/18/22 23:14 Intake and Output 06/18/22 06/19/22 06/19/22 22:59 06:59 14:59 Intake Total 358 Balance 358 Intake: Oral 358 Other: Voiding Method Toilet Urinal # Voids 1 # Bowel Movements 1 Weight 113.398 kg GENERAL EXAM: Alert, pleasant 57-year-old male patient, on 4 L nasal cannula, comfortable in no apparent distress. HEAD: Normocephalic. EYES: Normal reaction of pupils, equal size. NOSE: Clear with pink turbinates. THROAT: No erythema or exudates. NECK: No masses, no JVD. CHEST: No chest wall deformity. LUNGS: Equal air entry with crackles in the bilateral bases. CVS: S1 and S2 normal with no audible murmur, regular rhythm. ABDOMEN: No hepatosplenomegaly, normal bowel sounds, no guarding or rigidity. SPINE: No scoliosis or deformity SKIN: No rashes CENTRAL NERVOUS SYSTEM: No focal deficits, tone is normal in all 4 extremities. EXTREMITIES: There is trace peripheral edema. No clubbing, no cyanosis. Peripheral pulses are intact. Results - Laboratory Findings CBC and BMP: 06/18/22 23:24 06/18/22 23:24 PT/INR, D-dimer PT 11.1 sec (9.0-12.0) 06/18/22 23:24 INR 1.0 (<1.2) 06/18/22 23:24 Abnormal lab findings: Abnormal Labs 06/18/22 06/18/22 06/18/22 23:24 23:24 23:24 WBC 17.8 H Neutrophils # 14.6 H APTT 21.3 L Chloride 110 H Glucose 151 H POC Glucose (mg/dL) Troponin I 06/19/22 06/19/22 06/19/22 03:58 06:14 07:42 WBC Neutrophils # APTT Chloride Glucose POC Glucose (mg/dL) 191 H Troponin I 0.126 H* 0.109 H* 06/19/22 11:41 WBC Neutrophils # APTT Chloride Glucose POC Glucose (mg/dL) 281 H Troponin I - Diagnostic Findings Chest x-ray: image reviewed Assessment and Plan Assessment: Acute hypoxemic respiratory failure secondary to an acute exacerbation of chronic systolic congestive heart failure Coronary artery disease with multiple stent placements Ischemic cardiomyopathy with ejection fraction of 40% Chronic and ongoing tobacco dependence of 40 years Obesity Hypertension Hyperlipidemia Diabetes mellitus type 2 History of congestive heart failure, had been out of his home diuretics Plan: The patient was seen and evaluated Chest x-ray, labs and medications reviewed Continue IV diuretics Continue antibiotics for now Check a pro-calcitonin Follow-up chest x-ray in the a.m. Titrate down the FiO2 as tolerated Educated regarding the importance of complete smoking cessation We will continue to follow and make further recommendations based on his clinical status I have personally seen and examined the patient, performed the documentation and the assessment and plan as written. Number of minutes spent on the visit: 20.
[2022-06-19] MEDS ORDERED: DEXTROSE 50% SYRINGE 50 ML IVP PRN ×2 (14:51)
--- NOTE | 2022-06-19 16:13 | P.HPIM ---
History of Present Illness H&P Date: 06/19/22 Chief Complaint: Shortness of breath Patient is a 57 old male with a known history of hypertension, hyponatremia, coronary artery disease with history of stent placement, history of MT, currently with a smoker and occasional marijuana use presents to ER with complaints of shortness of breath since yesterday morning. Patient felt very short of breath and tightness in the chest on Lasix and could not go to work. Overnight patient became very anxious and could not breathe pacemaker and called EMS. Denied any complaints of fever or chills at home. Does have cough without any sputum production. No nausea vomiting abdominal pain or diarrhea. No headache or dizziness or lightheadedness. In the ER patient was hypoxic with pulse ox 80% on room air on admission and was placed on BiPAP. Was tachycardic and tachypneic. Was also given IV Lasix. EKG shows sinus rhythm with occasional ventricular premature complexes. There is some pulmonary interstitial infiltrate which is increased compared to last exam and could be worsening pulmonary fibrosis. Superimposed acute interstitial pneumonia also possible. Laboratory data showed WBC 17.8 hemoglobin 14.0 and platelets 243, neutrophils 40.6 Sodium 142 potassium 4.6 chloride 100 bicarb is 25 BUN 17 and creatinine 1.17 and blood sugar is 151 lactic acid 1.0 Calcium 8.9N notelevated.[id number] Troponin0.014,0.999wdk5.109 Review of Systems Constitutional: Patient denies any fever or chills . No generalized weakness or weight loss. Abdomen: Patient denied nausea vomiting and diarrhea and abdominal pain. Cardiovascular: Patient denies any chest pain. Patient does have short of breath no palpitations. No leg swelling. Respiratory: Patient does have cough without sputum production. He shortness of breath Neurologic: Patient denied any numbness or tingling headache. Musculoskeletal: Patient denies any complaints of joint swelling or deformity. Skin: Negative Psychiatric: Negative Endocrine: No heat or cold intolerance. No recent weight gain. Genitourinary: No dysuria or hematuria. All other 14 point ROS negative except the above Past Medical History Past Medical History: Coronary Artery Disease (CAD), Diabetes Mellitus, Hyperlipidemia, Hypertension, Myocardial Infarction (MT) Last Myocardial Infarction Date:: 02/08/22 History of Any Multi-Drug Resistant Organisms: None Reported Past Surgical History: Heart Catheterization With Stent, Orthopedic Surgery Additional Past Surgical History / Comment(s): 02/01/22 right radial heart cath with stent, 02/08/22 left radial heart cath with stent, right shoulder bone spur removed. Past Anesthesia/Blood Transfusion Reactions: No Reported Reaction Date of Last Stent Placement:: 02/25/2022 Past Psychological History: No Psychological Hx Reported Smoking Status: Current every day smoker Past Alcohol Use History: Occasional Additional Past Alcohol Use History / Comment(s): SMOKES < 1 PPD-TRYING TO QUIT- HAS BEEN SMOKING SINCE AGE 16. Past Drug Use History: Marijuana Additional Drug Use History / Comment(s): Uses marijuana recreationally. - Past Family History Father Family Medical History: Coronary Artery Disease (CAD) Medications and Allergies Home Medications Medication Instructions Recorded Confirmed Type Atorvastatin [Lipitor] 80 mg PO HS #90 tab 02/08/22 06/19/22 Rx Bumetanide [Bumex] 1 mg PO DAILY 02/08/22 06/19/22 History Nitroglycerin Sl Tabs [Nitrostat] 0.4 mg SUBLINGUAL Q5M PRN #25 tab 02/08/22 06/19/22 Rx Pantoprazole [Protonix] 40 mg PO DAILY 02/08/22 06/19/22 History metFORMIN HCL ER [Glucophage XR] 500 mg PO DAILY 02/08/22 06/19/22 History Spironolactone [Aldactone] 25 mg PO DAILY #30 tab 02/10/22 06/19/22 Rx carvediloL [Coreg] 6.25 mg PO BID #60 tablet 02/10/22 06/19/22 Rx Clopidogrel [Plavix] 75 mg PO DAILY 06/19/22 06/19/22 History Isosorbide Mononitrate ER [Imdur] 30 mg PO DAILY 06/19/22 06/19/22 History Metoprolol Succinate (ER) [Toprol 50 mg PO DAILY 06/19/22 06/19/22 History Xl] lisinopriL [Zestril] 20 mg PO DAILY 06/19/22 06/19/22 History Allergies Allergy/AdvReac Type Severity Reaction Status Date / Time No Known Allergies Allergy Verified 06/19/22 12:06 Physical Exam Vitals: Vital Signs Temp Pulse Pulse Resp BP BP Pulse Ox 06/19/22 08:52 98 06/19/22 08:00 97.9 F 75 20 131/78 97 06/19/22 04:00 98.3 F 62 21 128/60 97 06/19/22 02:00 97.9 F 82 24 142/75 95 06/19/22 01:16 84 20 06/19/22 00:38 78 24 138/68 95 06/19/22 00:02 90 06/18/22 23:42 85 06/18/22 23:25 98 30 H 174/98 94 L 06/18/22 23:20 06/18/22 23:14 98.4 F 116 H 28 H 197/119 80 L FiO2 06/19/22 08:52 06/19/22 08:00 06/19/22 04:00 06/19/22 02:00 06/19/22 01:16 06/19/22 00:38 06/19/22 00:02 06/18/22 23:42 06/18/22 23:25 06/18/22 23:20 40 06/18/22 23:14 Intake and Output 06/18/22 06/19/22 06/19/22 22:59 06:59 14:59 Intake Total 118 Balance 118 Intake: Oral 118 Other: Voiding Method Toilet Urinal # Voids 1 # Bowel Movements 1 Weight 113.398 kg PHYSICAL EXAMINATION: Patient is lying in the bed comfortably, no acute distress, awake alert and oriented.. HEENT: Normocephalic. Neck is supple. Pupils reactive. Nostrils clear. Oral cavity is moist. Neck reveals no JVD, carotid bruits, or thyromegaly. CHEST EXAMINATION: Trachea is central. Symmetrical expansion. Patient does have bilateral scattered crackles and no wheezing. CARDIAC: Normal S1, S2 with no gallops. No murmurs ABDOMEN: Soft. Bowel sounds normal. No organomegaly. No abdominal bruits. Extremities: reveal no edema. No clubbing or cyanosis Neurologically awake, alert, oriented x3 with well-coordinated movements. No focal deficits noted Skin: No rash or skin lesions. Psychiatric: Coperative. Nonsuicidal Musculoskeletal: No joint swelling or deformity. Normal range of motion. Results CBC & Chem 7: 06/18/22 23:24 06/18/22 23:24 Labs: Abnormal Lab Results - Last 24 Hours (Table) 06/18/22 06/18/22 06/18/22 Range/Units 23:24 23:24 23:24 WBC 17.8 H (3.8-10.6) k/uL Neutrophils # 14.6 H (1.3-7.7) k/uL APTT 21.3 L (22.0-30.0) sec Chloride 110 H (98-107) mmol/L Glucose 151 H (74-99) mg/dL POC Glucose (mg/dL) (70-110) mg/dL Troponin I (0.000-0.034) ng/mL 06/19/22 06/19/22 06/19/22 Range/Units 03:58 06:14 07:42 WBC (3.8-10.6) k/uL Neutrophils # (1.3-7.7) k/uL APTT (22.0-30.0) sec Chloride (98-107) mmol/L Glucose (74-99) mg/dL POC Glucose (mg/dL) 191 H (70-110) mg/dL Troponin I 0.126 H* 0.109 H* (0.000-0.034) ng/mL Thrombosis Risk Factor Assmnt - DVT/VTE Prophylaxis DVT/VTE Prophylaxis: Pharmacologic Prophylaxis ordered - Choose All That Apply Each Factor Represents 1 point: Age 41-60 years, Obesity (BMI >25) Thrombosis Risk Factor Assessment Total Risk Factor Score: 2 Thrombosis Risk Factor Assessment Level: Low Risk Assessment and Plan Assessment: Acute hypoxic respiratory failure due to CHF exacerbation. Requiring BiPAP on admission acute on chronic CHF with systolic dysfunction ejection fraction Mildly elevated troponin level possible demand ischemia. Possible underlying interstitial pulmonary fibrosis with interstitial pneumonia Ischemic cardiomyopathy Coronary artery is a history of stent placement Diabetes type 2 [id number] Hypertension Obesity Hyperlipidemia Ongoing nicotine addiction DVT prophylaxis with heparin subcu Plan: Patient will be continued on telemetry monitoring. Was requiring BiPAP on admission and currently transitioned to oxygen with nasal cannula. Continue with IV Lasix 40 mg twice daily. Strict I and Os and daily weight. Continue with home medications including aspirin, Coreg, lisinopril and Aldactone and statins. Continue with antibiotics ceftriaxone and azithromycin. Follow-up pro calcitonin level. Pulmonary and cardiology was consulted. Smoking cessation has been counseled extensively. Time with Patient: Greater than 30
[2022-06-19 16:35] LABS: Glucose,Whole Blood 176 mg/dL (70-110)
[2022-06-19] MEDS: INSULIN ASPART (NovoLOG) 100 UNIT/ML VIAL SQ SCH ×3 (17:29→21:26)
[2022-06-19] MEDS: carvediloL 6.25 MG TAB PO SCH (17:29)
--- NOTE | 2022-06-19 18:49 | CA ---
Transthoracic Echo Report Name: Benigno Singh Age: 57 Gender: M : 1965 Exam Date: 06/19/2022 14:00 Exam Location: [facility] Ht (in): 68 Wt (lb): 250 Ordering Physician: Maritza Beltre Attending/Referring Phys: Roll Changer Yumiko Loo, BIPIN Procedure CPT: Indications: LV function, recent NSTEMI Cardiac Hx: Technical Quality: Poor Contrast 1: Total Dose (mL): Contrast 2: Total Dose (mL): MEASUREMENTS (Male / Female) Normal Values DOPPLER TR Peak Velocity 280.2 cm/s TR Peak Gradient 31.4 mmHg Right Ventricular Systolic Press 36.4 mmHg FINDINGS Left Ventricle Limited study. Left ventricular ejection fraction is estimated at 40-45 %. Apical septum ,apical inferior apical anterior an apical lateral roman hypokinesis Right Ventricle Mild pulmonary hypertension. Right Atrium Left Atrium Mitral Valve Aortic Valve Tricuspid Valve Pulmonic Valve Pericardium Normal pericardium. No pericardial effusion. Aorta CONCLUSIONS Limited echo to assess ejection fraction. The LVEF is 40-45% with apical and mid ventricle hypokinesia Previewed by: Dr. Will Mckeon MD (Electronically Signed) Final Date: 19 June 2022 18:48
[2022-06-19 20:14] LABS: Glucose,Whole Blood 216 mg/dL (70-110)
[2022-06-19] MEDS ORDERED: ATORVASTATIN 80 MG TAB PO SCH (21:00)
[2022-06-19] MEDS ORDERED: AZITHROMYCIN 500 MG in SODIUM CHLORIDE 0.9% 250 ML IVPB SCH (21:00)
[2022-06-20 05:55] LABS: Glucose,Whole Blood 148 mg/dL (70-110)
[2022-06-20] MEDS: INSULIN ASPART (NovoLOG) 100 UNIT/ML VIAL SQ SCH (06:11)
[2022-06-20] MEDS: carvediloL 6.25 MG TAB PO SCH (06:37)
[2022-06-20 07:38] LABS: Basophils % (A) 0 %; Eosinophils % (A) 0 %; HCT 34.1 % (39.0-53.0); HGB 11.6 gm/dL (13.0-17.5); Lymphocytes # (A) 1.2 k/uL (1.0-4.8); Lymphocytes % (A) 12 %; MCH 29.9 pg (25.0-35.0); MCV 88.1 fL (80.0-100.0); Mean Platelet Volume 9.3; Monocytes # (A) 0.6 k/uL (0-1.0); Monocytes % (A) 7 %; Neutrophils # (A) 7.4 k/uL (1.3-7.7); Neutrophils % (A) 79 %; Platelet Count 168 k/uL (150-450); RBC 3.87 m/uL (4.30-5.90); WBC 9.5 k/uL (3.8-10.6)
[2022-06-20 07:52] LABS: ALT 32 U/L (4-49); AST 23 U/L (17-59); African American GFR (CKD) >90 (>60 ml/min/1.73 sqM); Albumin 3.7 g/dL (3.5-5.0); Alkaline Phosphatase 63 U/L (38-126); Anion Gap 5 mmol/L; Blood Urea Nitrogen 20 mg/dL (9-20); Calcium 8.6 mg/dL (8.4-10.2); Carbon Dioxide 28 mmol/L (22-30); Chloride 108 mmol/L (98-107); Glucose 125 mg/dL (74-99); Magnesium 2.2 mg/dL (1.6-2.3); Non-African American GFR(CKD) 90 (>60 ml/min/1.73 sqM); Sodium 141 mmol/L (137-145); Total Bilirubin 0.6 mg/dL (0.2-1.3); Total Protein 6.3 g/dL (6.3-8.2)
[2022-06-20] MEDS ORDERED: lisinopriL 10 MG TAB PO SCH (09:00)
[2022-06-20] MEDS ORDERED: SPIRONOLACTONE 25 MG TAB PO SCH (09:00)
--- NOTE | 2022-06-20 09:26 | XR ---
EXAMINATION TYPE: XR chest 1V portable DATE OF EXAM: 06/20/2022 COMPARISON: 06/18/2022 HISTORY: Shortness of breath TECHNIQUE: Single frontal view of the chest is obtained. FINDINGS: There is no focal air space opacity, pleural effusion, or pneumothorax seen. The cardiac silhouette size is within normal limits. The osseous structures are intact. Arthropathy of the shou lders. Hypertrophic and degenerative changes of the spine. IMPRESSION: No acute process.
[2022-06-20] MEDS: PANTOPRAZOLE 40 MG/10 ML VIAL IV SCH (10:12)
[2022-06-20] MEDS: CLOPIDOGREL 75 MG TAB PO SCH (10:12)
[2022-06-20] MEDS: FUROSEMIDE 10 MG/ML 4 ML VIAL IV SCH (10:12)
[2022-06-20] MEDS: ASPIRIN 81 MG PO SCH (10:12)
[2022-06-20 11:39] LABS: Glucose,Whole Blood 115 mg/dL (70-110)
--- NOTE | 2022-06-20 12:42 | P.PN ---
Subjective History of present illness: This is a 56 year old male with a past medical history of recent NSTEMI coronary artery disease s/p PCI recently to mid RCA on 02/25/2022, LAD 02/08/2022, and LAD on 02/01/2022, and PCI 13 years ago at [facility], Type 2 Diabetes, Hypertension, hyperlipidemia, chronic nicotine dependence (smoking 1/2 PPD, now down to 5-6 cigarettes per day). He follows with Dr. Stevens. We have in consultation for patient for CHF. Patient presents emergency department with complaints of shortness of breath. He states that recently he has missed some of his medications, he ran out of his prescriptions and was not taking his Bumex as well as some other medications. Over the past few days since has been having increased shortness of breath and lower extremity edema. He denies any chest pain, palpitations, lightheadedness, dizziness, syncope or near syncope. He states that he took nitroglycerin at home with no relief. He was started on IV Lasix, oxygen supplementation and breathing treatments in the emergency department and states that his breathing has improved. His symptoms are not similar from his prior NH. He continues to smoke, currently less than a PPD. He has been smoking for 35 years. He endorses occasional alcohol drinking beers. Occassionally uses marijuana. 06/20 Patient seen and examined. Patient states he is feeling much better and his baseline. Denies any chest pain or pressure. States his shortness of breath has improved. Limited echo performed yesterday shows EF 40-45% with apical anterior hypokinesis, similar to last one in office at 42%. PHYSICAL EXAMINATION Vitals reviewed CONSTITUTIONAL: No apparent distress. HEENT: Head is normocephalic. Pupils are equal, round. Sclerae anicteric. Mucous membranes of the mouth are moist. No JVD. No carotid bruit. CHEST EXAMINATION: Lungs are crackles bilateral bases to auscultation. No chest wall tenderness is noted on palpation or with deep breathing. HEART EXAMINATION: Regular rate and rhythm. S1, S2 heard. Systolic murmur noted. No gallops or rub. ABDOMEN: Soft, nontender. Positive bowel sounds. EXTREMITIES: 2+ peripheral pulses, no lower extremity edema and no calf tenderness. NEUROLOGIC EXAMINATION: Patient is awake, alert and oriented x3. ASSESSMENT Acute on chronic heart failure with reduced ejection fraction, EF 42% in the office 04/2022, ran out of his diuretics at home Coronary artery disease s/p recent PCI RCA 02/25/2022, PCI LAD 02/08/2022 secondary to acute thrombosis of LAD stent, and PCI LAD on 02/01/2022, and PCI 13 years ago at [facility] Type 2 Diabetes Hypertension Hyperlipidemia Chronic nicotine dependence PLAN Patient appears to be doing much better and appears at his baseline. Appears stable for discharge home from a cardiology standpoint. Continue with heart failure regimen. Home on home dose of Bumex. Objective - Vital Signs Vital signs: Vital Signs Temp 97.6 F 06/20/22 10:10 Pulse 61 06/20/22 10:10 Resp 16 06/20/22 10:10 BP 139/86 06/20/22 10:10 Pulse Ox 96 06/20/22 10:10 FiO2 21 06/20/22 00:36 Intake & Output 06/19/22 06/20/22 06/20/22 18:59 06:59 18:59 Intake Total 476 358 Balance 476 358 Weight 111.9 kg Intake: Oral 476 358 Other: Voiding Method Toilet Toilet Urinal Urinal - Labs CBC & Chem 7: 06/20/22 05:57 06/20/22 05:57 Labs: Abnormal Lab Results - Last 24 Hours (Table) 06/19/22 06/19/22 06/19/22 Range/Units 07:42 16:33 20:12 RBC (4.30-5.90) m/uL Hgb (13.0-17.5) gm/dL Hct (39.0-53.0) % Chloride (98-107) mmol/L Glucose (74-99) mg/dL POC Glucose (mg/dL) 176 H 216 H (70-110) mg/dL Hemoglobin A1c (0.0-6.0) % Procalcitonin 0.22 H (0.02-0.09) ng/mL 06/20/22 06/20/22 06/20/22 Range/Units 05:53 05:57 05:57 RBC 3.87 L (4.30-5.90) m/uL Hgb 11.6 L (13.0-17.5) gm/dL Hct 34.1 L (39.0-53.0) % Chloride (98-107) mmol/L Glucose (74-99) mg/dL POC Glucose (mg/dL) 148 H (70-110) mg/dL Hemoglobin A1c 6.2 H (0.0-6.0) % Procalcitonin (0.02-0.09) ng/mL 06/20/22 06/20/22 Range/Units 05:57 11:33 RBC (4.30-5.90) m/uL Hgb (13.0-17.5) gm/dL Hct (39.0-53.0) % Chloride 108 H (98-107) mmol/L Glucose 125 H (74-99) mg/dL POC Glucose (mg/dL) 115 H (70-110) mg/dL Hemoglobin A1c (0.0-6.0) % Procalcitonin (0.02-0.09) ng/mL Microbiology - Last 24 Hours (Table) 06/19/22 03:58 Blood Culture - Preliminary Blood No Growth after 24 hours
[2022-06-20 13:05] VITALS: BP 145/83; PULSE 52; RESP 18; TEMP 97.5
--- NOTE | 2022-06-20 13:31 | P.PN ---
Subjective Progress Note Date: 06/20/22 This is a pleasant 57-year-old male patient with a known history of coronary artery disease with multiple stent placements, diabetes mellitus, hyperlipidemia, hypertension, chronic and ongoing tobacco dependence since age of 16, occasional marijuana use. He presented to the emergency department last evening with complaints of rather sudden onset of shortness of breath. He is also noted to have ischemic cardiac myopathy with ejection fraction 40%. He states he did run out of his diuretics at home. His x-ray reveals pulmonary interstitial infiltrates. White count 17.8. Hemoglobin 14.0. Sodium 142. Potassium 4.6. BUN 17. Creatinine 1.17. Glucose 151. Troponin 0.014, 0.126, 0.109. BNP 3440. Weinberg virus by PCR not detected. He is seen today in consultation on the selective care unit. He is currently sitting up in bed. Awake and alert in no acute distress. States he is already breathing better today compared to yesterday. He is maintaining O2 saturations in the 90s on 4 L/m per nasal cannula. He was initially on BiPAP 07/16 and 40% FiO2. He's been initiated on antibiotics form of ceftriaxone and azithromycin. Lasix 40 mg IVP every 12 hours. No accurate I&O but the patient states he is voiding frequently. The patient is seen today in 06/20/2022 in follow-up on the selective care unit. He is sitting up in bed. Awake and alert in no acute distress. Doing quite a bit better today compared to yesterday. He is maintaining good O2 saturations in the 90s on room air. He's been afebrile. Hemodynamically stable. There is responding well to IV diuretics which is Lasix 40 mg every 12 hours. No accurate I&O. Today's chest x-ray reveals near complete resolution of the pulmonary interstitial infiltrates. No acute pulmonary process. A culture reveals no growth to date. White count 9.5. Hemoglobin 11.6. Sodium 141 potassium 4.0. BUN 20. Creatinine 0.95. Glucose 148. Pro-calcitonin was 0.22. He is currently on Augmentin. Objective - Vital Signs Vital signs: Vital Signs Temp 97.5 F L 06/20/22 13:00 Pulse 52 L 06/20/22 13:00 Resp 18 06/20/22 13:00 BP 145/83 06/20/22 13:00 Pulse Ox 98 06/20/22 13:00 FiO2 21 06/20/22 00:36 Intake & Output 06/19/22 06/20/22 06/20/22 18:59 06:59 18:59 Intake Total 476 358 Balance 476 358 Weight 111.9 kg Intake: Oral 476 358 Other: Voiding Method Toilet Toilet Urinal Urinal - Exam GENERAL EXAM: Alert, pleasant 57-year-old male patient, on 4 L nasal cannula, comfortable in no apparent distress. HEAD: Normocephalic. EYES: Normal reaction of pupils, equal size. NOSE: Clear with pink turbinates. THROAT: No erythema or exudates. NECK: No masses, no JVD. CHEST: No chest wall deformity. LUNGS: Equal air entry with faint crackles in the bilateral bases. CVS: S1 and S2 normal with no audible murmur, regular rhythm. ABDOMEN: No hepatosplenomegaly, normal bowel sounds, no guarding or rigidity. SPINE: No scoliosis or deformity SKIN: No rashes CENTRAL NERVOUS SYSTEM: No focal deficits, tone is normal in all 4 extremities. EXTREMITIES: There is trace peripheral edema. No clubbing, no cyanosis. Peripheral pulses are intact. - Labs CBC & Chem 7: 06/20/22 05:57 06/20/22 05:57 Labs: Abnormal Lab Results - Last 24 Hours (Table) 06/19/22 06/19/22 06/19/22 Range/Units 07:42 16:33 20:12 RBC (4.30-5.90) m/uL Hgb (13.0-17.5) gm/dL Hct (39.0-53.0) % Chloride (98-107) mmol/L Glucose (74-99) mg/dL POC Glucose (mg/dL) 176 H 216 H (70-110) mg/dL Hemoglobin A1c (0.0-6.0) % Procalcitonin 0.22 H (0.02-0.09) ng/mL 06/20/22 06/20/22 06/20/22 Range/Units 05:53 05:57 05:57 RBC 3.87 L (4.30-5.90) m/uL Hgb 11.6 L (13.0-17.5) gm/dL Hct 34.1 L (39.0-53.0) % Chloride (98-107) mmol/L Glucose (74-99) mg/dL POC Glucose (mg/dL) 148 H (70-110) mg/dL Hemoglobin A1c 6.2 H (0.0-6.0) % Procalcitonin (0.02-0.09) ng/mL 06/20/22 06/20/22 Range/Units 05:57 11:33 RBC (4.30-5.90) m/uL Hgb (13.0-17.5) gm/dL Hct (39.0-53.0) % Chloride 108 H (98-107) mmol/L Glucose 125 H (74-99) mg/dL POC Glucose (mg/dL) 115 H (70-110) mg/dL Hemoglobin A1c (0.0-6.0) % Procalcitonin (0.02-0.09) ng/mL Microbiology - Last 24 Hours (Table) 06/19/22 03:58 Blood Culture - Preliminary Blood No Growth after 24 hours Assessment and Plan Assessment: Acute hypoxemic respiratory failure secondary to an acute exacerbation of chronic systolic congestive heart failure Coronary artery disease with multiple stent placements Ischemic cardiomyopathy with ejection fraction of 40% Chronic and ongoing tobacco dependence of 40 years Obesity Hypertension Hyperlipidemia Diabetes mellitus type 2 History of congestive heart failure, had been out of his home diuretics Plan: The patient was seen and evaluated Chest x-ray, labs and medications reviewed X-ray shows near complete resolution of the interstitial edema Improved and on room air Procalcitonin 0.22, could complete 7 days of Augmentin Cleared for discharge from the pulmonary standpoint I have personally seen and examined the patient, performed the documentation and the assessment and plan as written. Number of minutes spent on the visit: 10.
[2022-06-20] MEDS ORDERED: AMOXIC-POT CLAV 875-125MG 1 EACH TAB PO SCH (21:00)
== END 2022-06-20 15:30 | disposition home or self-care (01) | DRG 291 ==
LOC: EC 23:12 → 3SCARD 06-19 01:17
PROVIDERS: ADMIT Hospitalist; ATTEND Hospitalist
PROC: 5A09357 Assistance with Respiratory Ventilation, Less than 24 Consecutive Hours, Continuous Positive Airway Pressure (ICD-10-PCS; principal; 2022-06-19)
DX: I11.0 Hypertensive heart disease with heart failure (principal); I50.23 Acute on chronic systolic (congestive) heart failure; J96.01 Acute respiratory failure with hypoxia; E11.9 Type 2 diabetes mellitus without complications; I25.10 Atherosclerotic heart disease of native coronary artery without angina pectoris; F17.210 Nicotine dependence, cigarettes, uncomplicated; E78.5 Hyperlipidemia, unspecified; I25.5 Ischemic cardiomyopathy; E66.9 Obesity, unspecified; Z95.5 Presence of coronary angioplasty implant and graft; I25.2 Old myocardial infarction; Z82.49 Family history of ischemic heart disease and other diseases of the circulatory system; Z79.02 Long term (current) use of antithrombotics/antiplatelets; Z79.84 Long term (current) use of oral hypoglycemic drugs; Z71.6 Tobacco abuse counseling; Z20.822 Contact with and (suspected) exposure to COVID-19; Z79.82 Long term (current) use of aspirin; Z68.37 Body mass index [BMI] 37.0-37.9, adult; Z79.899 Other long term (current) drug therapy
CPT/HCPCS: 36415; 71045; 80053; 83036; 83605; 83735; 83880; 84100; 84145; 84484; 85025; 85610; 85730; 87040; 87635; 93005; 93308; 94660; 94760; 96365; 96368; 96375; 99291

== ENCOUNTER 2025-02-23 00:44 | Observation (INO) | payer BC ==
--- NOTE | 2025-02-23 00:59 | ED ---
Chest Pain [facility] - General Chief Complaint: Chest Pain Stated Complaint: Chest Pain Time Seen by Provider: 02/23/25 00:50 Source: patient, RN notes reviewed, old records reviewed Mode of arrival: ambulatory Limitations: no limitations - History of Present Illness Initial Comments: This is a 59-year-old male this male presents today for evaluation regards to chest pain. Symptoms for 2 days getting worse increasing shortness of breath especially exertion cannot lay down flat MD Complaint: chest pain, other (Shortness of breath) -: days(s) Onset: during rest, during exertion, awoke with symptoms Pain Location: substernal, left chest Pain Radiation: none Severity: moderate Severity scale (1-10): 6 Quality: heaviness Consistency: constant Improves With: nothing Worsens With: nothing Anginal Symptoms: nausea, diaphoresis, sense of impending doom Other Symptoms: palpitations Treatments Prior to Arrival: none - Related Data Home Medications Medication Instructions Recorded Confirmed Pantoprazole [Protonix] 40 mg PO DAILY 02/08/22 02/23/25 metFORMIN HCL ER [Glucophage XR] 500 mg PO DAILY 02/08/22 02/23/25 Isosorbide Mononitrate ER [Imdur] 30 mg PO DAILY 06/19/22 02/23/25 Meloxicam [Mobic] 7.5 mg PO DAILY 02/23/25 02/23/25 Metoprolol Succinate (ER) [Toprol 50 mg PO DAILY 02/23/25 02/23/25 XL] Montelukast [Singulair] 10 mg PO DAILY 02/23/25 02/23/25 Rosuvastatin [Crestor] 10 mg PO DAILY 02/23/25 02/23/25 lisinopriL [Zestril] 20 mg PO DAILY 02/23/25 02/23/25 Previous Rx's Medication Instructions Recorded Nitroglycerin Sl Tabs [Nitrostat] 0.4 mg SUBLINGUAL Q5M PRN #25 tab 02/08/22 Spironolactone [Aldactone] 25 mg PO DAILY #30 tab 02/10/22 Aspirin 81 mg PO DAILY #30 tab 06/20/22 Furosemide [Lasix] 40 mg PO DAILY #30 tablet 02/23/25 Allergies Allergy/AdvReac Type Severity Reaction Status Date / Time No Known Allergies Allergy Verified 02/23/25 07:52 Review of Systems ROS Statement: Those systems with pertinent positive or pertinent negative responses have been documented in the HPI. ROS Other: All systems not noted in ROS Statement are negative. EKG Findings - EKG Comments: EKG Findings:: EKG sinus 61 NC 184 QRS 114 QTc 430 - EKG Results: EKG: interpreted by THADDEUS Past Medical History Past Medical History: Coronary Artery Disease (CAD), Diabetes Mellitus, Hyperlipidemia, Hypertension, Myocardial Infarction ([place]) Last Myocardial Infarction Date:: 02/08/22 History of Any Multi-Drug Resistant Organisms: None Reported Past Surgical History: Heart Catheterization With Stent, Orthopedic Surgery Additional Past Surgical History / Comment(s): 02/01/22 right radial heart cath with stent, 02/08/22 left radial heart cath with stent, right shoulder bone spur removed. Past Anesthesia/Blood Transfusion Reactions: No Reported Reaction Date of Last Stent Placement:: 02/25/2022 Past Psychological History: No Psychological Hx Reported Smoking Status: Current every day smoker Past Alcohol Use History: Occasional Past Drug Use History: Marijuana - Past Family History Father Family Medical History: Coronary Artery Disease (CAD) General Exam Limitations: no limitations General appearance: alert, in no apparent distress Head exam: Present: atraumatic, normocephalic, normal inspection Eye exam: Present: normal appearance, PERRL, EOMI. Absent: scleral icterus, conjunctival injection, periorbital swelling ENT exam: Present: normal exam, mucous membranes moist Neck exam: Present: normal inspection. Absent: tenderness, meningismus, lymphadenopathy Respiratory exam: Present: normal lung sounds bilaterally. Absent: respiratory distress, wheezes, rales, rhonchi, stridor Cardiovascular Exam: Present: regular rate, normal rhythm, normal heart sounds. Absent: systolic murmur, diastolic murmur, rubs, gallop, clicks GI/Abdominal exam: Present: soft, normal bowel sounds. Absent: distended, tenderness, guarding, rebound, rigid Extremities exam: Present: normal inspection, full ROM, normal capillary refill. Absent: tenderness, pedal edema, joint swelling, calf tenderness Back exam: Present: normal inspection Neurological exam: Present: alert, oriented X3, CN II-XII intact Psychiatric exam: Present: normal affect, normal mood Skin exam: Present: warm, dry, intact, normal color. Absent: rash Course Vital Signs 02/23/25 02/23/2525 00:45 02:51 03:41 Temperature 97.5 F L Pulse Rate 67 58 L 60 Respiratory 16 20 Rate Blood Pressure 153/82 125/73 O2 Sat by Pulse 99 97 Oximetry 02/23/25 02/23/25 03:56 03:58 Temperature Pulse Rate 58 L 61 Respiratory 18 Rate Blood Pressure 135/96 O2 Sat by Pulse 100 Oximetry - Reevaluation(s) Reevaluation #1: Medical records reviewed Reevaluation #2: Patient still with chest pain Reevaluation #3: Patient informed of results questions answered Reevaluation #4: Was pt. sent in by a medical professional or institution (, [facility], [facility], urgent care, hospital, or [place] health care facility...) When possible be specific @ -no Did you speak to anyone other than the patient for history (EMS, parent, family, police, friend...)? What history was obtained from this source @ -no Did you review nursing and triage notes (agree or disagree)? Why? @ -agree Are old charts reviewed (outside hosp., previous admission, EMS record, old EKG, old radiological studies, urgent care reports/EKG's, [place] health care facility records)? Report findings @ -yes Differential Diagnosis (chest pain, altered mental status, abdominal pain women, abdominal pain men, vaginal bleeding, weakness, fever, dyspnea, syncope, headache, dizziness, GI bleed, back pain, seizure, CVA, palpatations, mental health, musculoskeletal)? @ -prior EKG interpreted by me (3pts min.). @ -yes X-rays interpreted by me (1pt min.). @ -yes negative for acute disease CT interpreted by me (1pt min.). @ -no U/S interpreted by me (1pt. min.). @ -no What testing was considered but not performed or refused? (CT, X-rays, U/S, labs)? Why? @ -none What meds were considered but not given or refused? Why? @ -none Did you discuss the management of the patient with other professionals (professionals i.e. [facility] Diaz, [facility], lab, RT, psych nurse, social science research assistant, manufacturing executive, teacher, consumer loan officer, mental health case manager)? Give summary @ -no Was smoking cessation discussed for >3mins.? @ -no Was critical care preformed (if so, how long)? @ -no Were there social determinants of health that impacted care today? How? (Homelessness, low income, unemployed, alcoholism, drug addiction, transportation, low edu. Level, literacy, decrease access to med. care, intermediate, rehab)? @ -none Was there de-escalation of care discussed even if they declined (Discuss DNR or withdrawal of care, Hospice)? DNR status @ -no What co-morbidities impacted this encounter? (DM, HTN, Smoking, COPD, CAD, Cancer, CVA, ARF, Chemo, Hep., AIDS, mental health diagnosis, sleep apnea, morbid obesity)? @ -none Was patient admitted / discharged? Hospital course, mention meds given and route, prescriptions, significant lab abnormalities, going to OR and other pertinent info. @ - Undiagnosed new problem with uncertain prognosis? @ -no Drug Therapy requiring intensive monitoring for toxicity (Heparin, Nitro, Insulin, Cardizem)? @ -no Were any procedures done? @ -no Diagnosis/symptom? @ - Acute, or Chronic, or Acute on Chronic? @ -Acute Uncomplicated (without systemic symptoms) or Complicated (systemic symptoms)? @ -Complicated Side effects of treatment? @ -no Exacerbation, Progression, or Severe Exacerbation? @ -exacerbation Poses a threat to life or bodily function? How? (Chest pain, [place], [place], pneumonia, PE, COPD, DKA, ARF, appy, cholecystitis, CVA, Diverticulitis, Homicidal, Suicidal, threat to staff... and all critical care pts) @ -yes Reevaluation #5: Differential Dyspnea: Coronary syndrome, arrhythmia, tamponade, asthma, COPD, pulmonary embolism, pneu monia, pneumothorax, pulmonary effusion, anaphylaxis, diabetic ketoacidosis, flailed chest, pulmonary contusion, diaphragmatic rupture, anemia, neuromuscular, this is not meant to be an all-inclusive list. Differential Chest Pain: Stable Angina, Unstable Angina, STEMI, NSTEMI Aortic Dissection, Pneumothorax, Musculoskeletal, Esophageal Spasm GERD, Cholecystitis, Pancreatitis, Zoster, this is not meant to be an all-inclusive list. - Consultations Consultation #1: Spoke with [facility] who agrees to admit this patient Chest Pain MDM - MDM 59 male to ER for evaluation of chest pain shortness of breath CHF and COPD. Patient will admit for pulmonology and cardiology evaluation Disposition Clinical Impression: Chest pain, Acute pulmonary edema, Hypoxia, ACS (acute coronary syndrome) Disposition: ADMITTED IP TO THIS HOSP Condition: Fair Is patient prescribed a controlled substance at d/c from ED?: No Time of Disposition: 03:00
[2025-02-23 02:02] LABS: Basophils # (A) 0.05 10*3/uL (0.00-0.10); Basophils % (A) 0.5 %; Eosinophils # (A) 0.17 10*3/uL (0.04-0.35); Eosinophils % (A) 1.6 %; HCT 40.6 % (39.6-50.0); HGB 13.5 g/dL (13.0-17.0); Lymphocytes # (A) 1.40 10*3/uL (0.90-5.00); Lymphocytes % (A) 13.1 %; MCH 28.0 pg (27.0-32.0); MCHC 33.3 g/dL (32.0-37.0); MCV 84.1 fL (80.0-97.0); Monocytes # (A) 0.90 10*3/uL (0.20-1.00); Monocytes % (A) 8.4 %; Neutrophils # (A) 8.10 10*3/uL (1.80-7.70); Neutrophils % (A) 76.0 %; Platelet Count 193 10*3/uL (140-440); RBC 4.83 10*6/uL (4.40-5.60); RDW 13.7 % (11.5-14.5); WBC 10.66 10*3/uL (4.50-10.00)
[2025-02-23 02:30] LABS: INR 1.0 (<1.2); Partial Thromboplastin Time 23.7 sec (22.0-30.0); Prothrombin Time 11.3 sec (10.0-12.5)
[2025-02-23 02:34] LABS: ALT 28 U/L (4-49); AST 28 U/L (17-59); African American GFR (CKD) >90 (>60 ml/min/1.73 sqM); Albumin 4.3 g/dL (3.5-5.0); Alkaline Phosphatase 63 U/L (38-126); Anion Gap 12 mmol/L; Blood Urea Nitrogen 17 mg/dL (9-20); Calcium 10.2 mg/dL (8.4-10.2); Carbon Dioxide 24 mmol/L (22-30); Chloride 104 mmol/L (98-107); Glucose 134 mg/dL (74-99); Lipase 146 U/L (23-300); Magnesium 1.7 mg/dL (1.6-2.3); Non-African American GFR(CKD) >90 (>60 ml/min/1.73 sqM); Potassium 4.7 mmol/L (3.5-5.1); Sodium 140 mmol/L (137-145); Total Protein 7.2 g/dL (6.3-8.2)
[2025-02-23 02:43] LABS: NT-Pro-B-Type Natriuretic Pept 2420 pg/mL
[2025-02-23] MEDS ORDERED: ONDANSETRON 4 MG/2 ML VIAL IVP PRN (03:24)
[2025-02-23] MEDS ORDERED: NALOXONE 0.4 MG/ML 1 ML VIAL IV PRN (03:24)
[2025-02-23] MEDS ORDERED: MORPHINE SULFATE 4 MG/ML SYRINGE IV PRN (03:24)
[2025-02-23] MEDS: IPRATROPIUM-ALBUTEROL 3 ML NEB INHALATION STA (03:39)
[2025-02-23] MEDS: DEXAMETHASONE SOD PHOSPHATE 10 MG/ML 1 ML VIAL IVP STA (03:42)
[2025-02-23] MEDS: FUROSEMIDE 10 MG/ML 4 ML VIAL IV STA (03:42)
--- NOTE | 2025-02-23 04:00 | XR ---
EXAM: XR Chest, 2 Views CLINICAL HISTORY: ITS.REASON XR Reason: Chest Pain TECHNIQUE: Frontal and lateral views of the chest. COMPARISON: X-ray dated 06/30/2022. FINDINGS: Lungs: Increased lung markings are seen bilaterally. Pleural space: Unremarkable. No pneumothorax. Heart: Mild enlargement of the cardiac silhouette. Mediastinum: Unremarkable. Normal mediastinal contour. Bones/joints: Degenerative changes are seen within the spine and shoulders. No acute fracture. IMPRESSION: Increased lung markings seen bilaterally which may represent chronic lung markings. Underlying pneumonia is not excluded.
[2025-02-23 04:59] VITALS: TEMP 97.7
--- NOTE | 2025-02-23 06:06 | P.CNPUL ---
History of Present Illness Consult date: 02/23/25 Requesting physician: Devyn Moon Reason for consult: COPD Chief complaint: Shortness of breath History of present illness: Patient is a 59-year-old female with past medical history significant for coronary artery disease with multiple previous stents, ischemic cardiomyopathy with an ejection fraction of 40%, diabetes mellitus, hyperlipidemia, hypertension, chronic ongoing tobacco dependence, occasional marijuana smoker. Presented emergency department early this morning with a chief complaint of epigastric discomfort. Also, he has had trouble sleeping over the last few nights. Goes to sleep okay and then wakes up gasping for air in the middle the night. He has been sleeping in the recliner for the last 2 days. He has noticed increased swelling in his legs. His abdomen also feels taut. 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 Workup in the emergency department including a chest x-ray showing cardiomegaly pulmonary vascular congestion. No focal infiltrates, pleural effusions, pneumothoraces. NT-proBNP 2420. CBC unremarkable. CMP also unremarkable, electrolytes WDL, creatinine 0.9, glucose 134. Troponin less than 0.012. EG sinus tachycardia, rate 61 bpm, left anterior vascular block, no acute ST segment elevations. T wave inversions noted in lateral leads. Patient currently being seen in the emergency department. Resting comfortably on room air. Not in any respiratory distress. He is sitting up in the bedside recliner. Denies any current chest pain. Denies any history of COPD or asthma. He does smoke one half to 1 pack/day, has done so since he was 16. Occasional marijuana user as well. Endorses occasional cough, nonproductive. No sputum production, hemoptysis. No fevers or chills. No sick contacts. No recent travel. Current vital signs: Temperature 97.7 F, heart rate 60 bpm, blood pressure 132/78 mmHg, nontachypneic, SpO2 recorded at 96% on room air. Review of Systems REVIEW OF SYSTEMS: CONSTITUTIONAL: Denies any recent significant weight loss or weight gain. EYES: Denies change in vision. EARS, NOSE, MOUTH, THROAT: Denies headaches, denies sore throat. CARDIOVASCULAR: See HPI RESPIRATORY: See HPI GASTROINTESTINAL: Denies change in appetite, abdominal pain, nausea and vomiting, or diarrhea GENITOURINARY: Denies hematuria, denies infections. MUSKULOSKELETAL: Denies pain, or recent trauma INTEGUMENTARY: Denies rash, denies eczema. NEUROLOGICAL: Denies recent memory loss, no recent seizure activity. PSYCHIATRIC: Denies anxiety, denies depression. HEMATOLOGIC/LYMPHATIC: Denies anemia, denies enlarged lymph node Past Medical History Past Medical History: Coronary Artery Disease (CAD), Diabetes Mellitus, Hyperlipidemia, Hypertension, Myocardial Infarction ([place]) Last Myocardial Infarction Date:: 02/08/22 History of Any Multi-Drug Resistant Organisms: None Reported Past Surgical History: Heart Catheterization With Stent, Orthopedic Surgery Additional Past Surgical History / Comment(s): 02/01/22 right radial heart cath with stent, 02/08/22 left radial heart cath with stent, right shoulder bone spur removed. Past Anesthesia/Blood Transfusion Reactions: No Reported Reaction Date of Last Stent Placement:: 02/25/2022 Past Psychological History: No Psychological Hx Reported Smoking Status: Current every day smoker Past Alcohol Use History: Occasional Past Drug Use History: Marijuana - Past Family History Father Family Medical History: Coronary Artery Disease (CAD) Medications and Allergies Home Medications Medication Instructions Recorded Confirmed Type Nitroglycerin Sl Tabs [Nitrostat] 0.4 mg SUBLINGUAL Q5M PRN #25 tab 02/08/22 02/23/25 Rx Pantoprazole [Protonix] 40 mg PO DAILY 02/08/22 02/23/25 History metFORMIN HCL ER [Glucophage XR] 500 mg PO DAILY 02/08/22 02/23/25 History Spironolactone [Aldactone] 25 mg PO DAILY #30 tab 02/10/22 02/23/25 Rx Isosorbide Mononitrate ER [Imdur] 30 mg PO DAILY 06/19/22 02/23/25 History Aspirin 81 mg PO DAILY #30 tab 06/20/22 02/23/25 Rx Furosemide [Lasix] 40 mg PO DAILY #30 tablet 02/23/25 Rx Meloxicam [Mobic] 7.5 mg PO DAILY 02/23/25 02/23/25 History Metoprolol Succinate (ER) [Toprol 50 mg PO DAILY 02/23/25 02/23/25 History XL] Montelukast [Singulair] 10 mg PO DAILY 02/23/25 02/23/25 History Rosuvastatin [Crestor] 10 mg PO DAILY 02/23/25 02/23/25 History lisinopriL [Zestril] 20 mg PO DAILY 02/23/25 02/23/25 History Allergies Allergy/AdvReac Type Severity Reaction Status Date / Time No Known Allergies Allergy Verified 02/23/25 07:52 Physical Exam Vitals: Vital Signs Temp Pulse Resp BP Pulse Ox 02/23/25 03:58 61 18 135/96 100 02/23/25 03:56 58 L 02/23/25 03:41 60 02/23/25 02:51 58 L 20 125/73 97 02/23/25 00:45 97.5 F L 67 16 153/82 99 Intake and Output 02/22/25 02/22/25 02/23/25 14:59 22:59 06:59 Other: Weight 113.398 kg GENERAL EXAM: Alert, obese 59-year-old male, sitting in bedside recliner, comfortable in no apparent distress. HEAD: Normocephalic and atraumatic EYES: Normal reaction of pupils, equal size. NOSE: Clear with pink turbinates. THROAT: No erythema or exudates. NECK: No masses, no JVD. CHEST: No chest wall deformity. LUNGS: Equal air entry with no crackles, wheeze, rhonchi or dullness. On room air. No conversational dyspnea or accessory muscle use.. CVS: S1 and S2 normal with no audible murmur, regular rhythm. No extra heart sounds ABDOMEN: No hepatosplenomegaly, active bowel sounds, no guarding or rigidity. SPINE: No scoliosis or deformity SKIN: No rashes CENTRAL NERVOUS SYSTEM: No focal deficits, tone is normal in all 4 extremities. EXTREMITIES: There is 1-2+ bilateral lower extremity pitting edema. No clubbing or cyanosis. Peripheral pulses are intact. Results - Laboratory Findings CBC and BMP: 02/23/25 01:20 02/23/25 01:20 PT/INR, D-dimer PT 11.3 sec (10.0-12.5) 02/23/25 01:20 INR 1.0 (<1.2) 02/23/25 01:20 Abnormal lab findings: Abnormal Labs 02/23/25 02/23/25 01:20 01:20 WBC 10.66 H Neutrophils # 8.10 H Glucose 134 H - Diagnostic Findings Chest x-ray: image reviewed Assessment and Plan Assessment: Acute CHF exacerbation, with previously reduced ejection fraction Acute dyspnea, secondary to above, chest x-ray showing cardiomegaly and pulmonary vascular congestion. NT proBNP 2420 History of coronary disease with previous [place] and PCI/stents Hypertension History of hyperlipidemia Diabetes mellitus type 2 Chronic ongoing tobacco dependence, approximately 20-30 pack years Occasional marijuana user Obesity, with a BMI of 38 kg/m Plan: Patient currently on room air Previously received 40 mg of IV Lasix in the ED Most recent available echocardiogram reviewed from 2021, repeat if no recent study not available Cardiology is consulted Smoking cessation counseling performed greater than 5 minutes Nicotine patch refused He is wondering when he can go home Case will be reviewed with my supervising physician, additional recommendations forthcoming. I have personally seen and examined the patient, performed the documentation and the assessment and plan as written. Number of minutes spent on the visit:20 This is a joint evaluation that was done along with the nurse practitioner. Evaluation was done and 31 minutes.. In summary, the patient is having worsenin g shortness of breath and the presentation is typical for CHF exacerbation. The patient's chest x-ray shows some increased pulmonary interstitial markings bilaterally consistent with CHF. The patient had a negative troponin. proBNP level was 2420. He is a chronic smoker. He may have also potential underlying obstructive sleep apnea. He is doing well. Is currently on room air oxygen. Comorbidities are multiple including coronary artery disease with previous coronary stenting, hypertension hyperlipidemia and diabetes mellitus and the patient is a chronic smoker and occasionally smokes marijuana. He is feeling well. He denies having any other complaints at this point. Seen by cardiology. Treated with IV Lasix and Farxiga was also added and the patient was transitioned to oral Lasix. Outpatient echocardiogram. Outpatient pulmonary follow-up for COPD and possible obstructive sleep apnea. Time with Patient: Greater than 30
[2025-02-23 08:00] VITALS: BP 146/79; PULSE 57; RESP 16
[2025-02-23] MEDS: FUROSEMIDE 10 MG/ML 4 ML VIAL IV SCH (08:58)
[2025-02-23] MEDS: SPIRONOLACTONE 25 MG TAB PO SCH (08:58)
[2025-02-23] MEDS: DAPAGLIFLOZIN PROPANEDIOL 10 MG TABLET PO SCH (08:58)
[2025-02-23] MEDS: ISOSORBIDE MONONITRATE ER 30 MG TAB.ER.24H PO SCH (08:58)
[2025-02-23] MEDS: ATORVASTATIN 20 MG TAB PO SCH (08:58)
[2025-02-23] MEDS: ASPIRIN 81 MG PO SCH (08:59)
[2025-02-23] MEDS: METOPROLOL SUCCINATE (ER) 50 MG TAB.ER.24H PO SCH (09:06)
--- NOTE | 2025-02-23 12:07 | P.CRDCN ---
History of Present Illness History of present illness: HISTORY OF PRESENT ILLNESS: This is a 59-year-old male with a past medical history significant for coronary artery disease with previous stenting, cardiomyopathy, hypertension, and hyper lipidemia. Patient follows in the office with Dr. Stevens. We have been asked to see the patient in consultation for congestive heart failure. Patient examined at the bedside. Patient presented to the hospital with a chief complaint of shortness of breath. Patient states he has been feeling increasingly short of breath over the past few weeks. He also reports feeling bloated. He reports increased lower extremity edema. The patient is on Aldactone on outpatient basis. Patient states he does not follow a low-sodium diet. DIAGNOSTICS: - EKG reveals sinus mechanism with no signs of acute ischemia. - Chest xray increased lung markings seen bilaterally which may represent chronic lung markings. Underlying pneumonia not excluded.. - Laboratory data: Troponin negative x 3. proBNP 2420. - Current home cardiac medications include lisinopril 20 mg daily, Crestor 10 mg daily, Aldactone 25 mg daily, metoprolol succinate 50 mg daily, Imdur 30 mg daily, aspirin 81 mg daily - Most recent echocardiogram obtained in February 2022 with stenting to the proximal RCA - Cardiac catheterization history: June 2022 revealing ejection fraction 42% REVIEW OF SYSTEMS: At the time of my exam: CONSTITUTIONAL: Denies fever or chills. HEENT: Denies blurred vision, vision changes, or eye pain. Denies hemoptysis CARDIOVASCULAR: Denies chest pain. Denies orthopnea. Denies PND. Denies palpitations RESPIRATORY: Denies shortness of breath. GASTROINTESTINAL: Denies abdominal pain. Denies nausea or vomiting. HEMATOLOGIC: Denies bleeding disorders. GENITOURINARY: Denies any blood in urine. SKIN: Denies pruitis. Denies rash. PHYSICAL EXAM: VITAL SIGNS: Reviewed. GENERAL: Well-developed in no acute distress. HEENT: Head is normocephalic. Pupils are equal, round. Sclerae anicteric. Mucous membranes of the mouth are moist. Neck supple. No JVD or thyromegaly LUNGS: Respirations even and unlabored. Lungs with crackles at the left lung base HEART: Regular rate and rhythm. S1 and S2 heard. ABDOMEN: Soft. Nondistended. Nontender. EXTREMITIES: Normal range of motion. No clubbing or cyanosis. Peripheral pulses intact. Bilateral lower extremity edema noted NEUROLOGIC: Awake and alert. Oriented x 3. ASSESSMENT: Shortness of breath Acute heart failure with reduced EF, 42% in 2021 Noncompliance with low-sodium diet Coronary artery disease with previous stenting Ischemic cardiomyopathy Hypertension Hyperlipidemia Obesity: BMI 38.2 PLAN: Resume home cardiac medications Begin IV Lasix 40 mg every 12 hours Add Farxiga 10 mg daily Resume home cardiac medications Reinforced low-sodium diet Patient is very anxious to be discharged home today. Patient may be discharged home this afternoon on oral Lasix and Farxiga Will obtain updated echo in the office Patient to follow-up postdischarge with Dr. Stevens Nurse practitioner note has been reviewed by physician. Signing provider agrees with the documented findings, assessment, and plan of care documented by ESTHETICS INSTRUCTOR as a scribe. Past Medical History Past Medical History: Coronary Artery Disease (CAD), Diabetes Mellitus, Hyperlipidemia, Hypertension, Myocardial Infarction ([place]) Last Myocardial Infarction Date:: 02/08/22 History of Any Multi-Drug Resistant Organisms: None Reported Past Surgical History: Heart Catheterization With Stent, Orthopedic Surgery Additional Past Surgical History / Comment(s): 02/01/22 right radial heart cath with stent, 02/08/22 left radial heart cath with stent, right shoulder bone spur removed. Past Anesthesia/Blood Transfusion Reactions: No Reported Reaction Date of Last Stent Placement:: 02/25/2022 Past Psychological History: No Psychological Hx Reported Smoking Status: Current every day smoker Past Alcohol Use History: Occasional Past Drug Use History: Marijuana - Past Family History Father Family Medical History: Coronary Artery Disease (CAD) Medications and Allergies Home Medications Medication Instructions Recorded Confirmed Type Nitroglycerin Sl Tabs [Nitrostat] 0.4 mg SUBLINGUAL Q5M PRN #25 tab 02/08/22 02/23/25 Rx Pantoprazole [Protonix] 40 mg PO DAILY 02/08/22 02/23/25 History metFORMIN HCL ER [Glucophage XR] 500 mg PO DAILY 02/08/22 02/23/25 History Spironolactone [Aldactone] 25 mg PO DAILY #30 tab 02/10/22 02/23/25 Rx Isosorbide Mononitrate ER [Imdur] 30 mg PO DAILY 06/19/22 02/23/25 History Aspirin 81 mg PO DAILY #30 tab 06/20/22 02/23/25 Rx Meloxicam [Mobic] 7.5 mg PO DAILY 02/23/25 02/23/25 History Metoprolol Succinate (ER) [Toprol 50 mg PO DAILY 02/23/25 02/23/25 History Xl] Montelukast [Singulair] 10 mg PO DAILY 02/23/25 02/23/25 History Rosuvastatin [Crestor] 10 mg PO DAILY 02/23/25 02/23/25 History lisinopriL [Zestril] 20 mg PO DAILY 02/23/25 02/23/25 History Allergies Allergy/AdvReac Type Severity Reaction Status Date / Time No Known Allergies Allergy Verified 02/23/25 07:52 Physical Exam Vitals: Vital Signs Temp Pulse Pulse Resp BP BP BP 02/23/25 07:18 97.7 F 57 L 16 146/79 02/23/25 04:54 97.7 F 60 18 132/78 02/23/25 03:58 61 18 135/96 02/23/25 03:56 58 L 02/23/25 03:41 60 02/23/25 02:51 58 L 20 125/73 02/23/25 00:45 97.5 F L 67 16 153/82 Pulse Ox 02/23/25 07:18 96 02/23/25 04:54 96 02/23/25 03:58 100 02/23/25 03:56 02/23/25 03:41 02/23/25 02:51 97 02/23/25 00:45 99 Intake and Output 02/22/25 02/23/25 02/23/25 22:59 06:59 14:59 Other: # Voids 1 Weight 113.398 kg Results 02/23/25 01:20 02/23/25 01:20 Cardiac Enzymes 02/23/25 02/23/25 02/23/25 Range/Units 01:20 01:20 05:16 AST 28 (17-59) U/L Troponin I <0.012 <0.012 (0.000-0.034) ng/mL Coagulation 02/23/25 Range/Units 01:20 PT 11.3 (10.0-12.5) sec APTT 23.7 (22.0-30.0) sec CBC 02/23/25 Range/Units 01:20 WBC 10.66 H (4.50-10.00) 10*3/uL RBC 4.83 (4.40-5.60) 10*6/uL Hgb 13.5 (13.0-17.0) g/dL Hct 40.6 (39.6-50.0) % Plt Count 193 (140-440) 10*3/uL Comprehensive Metabolic Panel 02/23/25 Range/Units 01:20 Sodium 140 (137-145) mmol/L Potassium 4.7 (3.5-5.1) mmol/L Chloride 104 (98-107) mmol/L Carbon Dioxide 24 (22-30) mmol/L BUN 17 (9-20) mg/dL Creatinine 0.90 (0.66-1.25) mg/dL Glucose 134 H (74-99) mg/dL Calcium 10.2 (8.4-10.2) mg/dL AST 28 (17-59) U/L ALT 28 (4-49) U/L Alkaline Phosphatase 63 (38-126) U/L Total Protein 7.2 (6.3-8.2) g/dL Albumin 4.3 (3.5-5.0) g/dL Current Medications Generic Name Dose Route Start Last Admin Trade Name Freq PRN Reason Stop Dose Admin Morphine Sulfate 4 mg 02/23/25 03:24 Morphine Sulfate 4 Mg/Ml Syringe IV Q4HR PRN Severe Pain (Scale 7 to 10) Naloxone HCl 0.2 mg 02/23/25 03:24 Naloxone 0.4 Mg/Ml 1 Ml Vial IV Q2M PRN Opioid Reversal Ondansetron HCl 4 mg 02/23/25 03:24 Ondansetron 4 Mg/2 Ml Vial IVP Q8HR PRN Nausea And Vomiting Intake and Output 02/22/25 02/23/25 02/23/25 22:59 06:59 14:59 Other: # Voids 1 Weight 113.398 kg 02/23/25 01:20 02/23/25 01:20
[2025-02-23 12:18] LABS: Glucose,Whole Blood 225 mg/dL (70-110)
[2025-02-23] MEDS: metFORMIN 500 MG TAB PO STA (13:19)
--- NOTE | 2025-02-23 13:25 | P.HPIM ---
History of Present Illness 59-year-old male with history coronary disease congestive heart failure EF of around 40% came in with complaints of shortness of breath orthopnea. Patient chest x-ray showed pulmonary edema patient has elevated proBNP of 2440. Patient was given IV Lasix with significant improvement patient is clinically doing well at this time. Patient denies any fever chills nausea vomiting chest x-ray did not show any pneumonia EKG did not show any acute ST-T wave changes. Troponins are within normal limits. Patient blood sugars are slightly elevated today. REVIEW OF SYSTEMS: All other systems are negative except those mentioned in the HPI PHYSICAL EXAMINATION: GENERAL: The patient is alert and oriented x3, not in any acute distress. Well developed, well nourished. Obese HEENT: Pupils are round and equally reacting to light. EOMI. No scleral icterus. No conjunctival pallor. Normocephalic, atraumatic. No pharyngeal erythema. No thyromegaly. CARDIOVASCULAR: S1 and S2 present. No murmurs, rubs, or gallops. PULMONARY: Chest is clear to auscultation, no wheezing or crackles. ABDOMEN: Soft, nontender, nondistended, normoactive bowel sounds. No palpable organomegaly. MUSCULOSKELETAL: No joint swelling or deformity. EXTREMITIES: No cyanosis, clubbing, or mild lower extremity pedal edema NEUROLOGICAL: Gross neurological examination did not reveal any focal deficits. SKIN: No rashes. Labs and imaging data was reviewed by me. Assessment and plan -Congestive heart failure chronic systolic function with acute exacerbation: Patient improved with IV Lasix. Patient will be transition to oral Lasix probably can be discharged today. Patient will continue lisinopril, beta- janet. - Coronary disease resumed on Imdur aspirin statin beta-janet. - Type 2 diabetes mellitus uncontrolled mildly elevated blood sugars I do not have any hemoglobin A1c I do not have enough glucose readings to titrate his medications patient may need increased dose of metformin. Patient will follow- up with PCP for for this. Hyperlipidemia - Hypertension - Obesity. Patient will be discharged today. Patient will be discharged with 40 mg of Lasix we will need basic metabolic profile tested as an outpatient. Patient is already on Aldactone and lisinopril. Patient's potassium upon discharge is 4.7 Past Medical History Past Medical History: Coronary Artery Disease (CAD), Diabetes Mellitus, Hyperlipidemia, Hypertension, Myocardial Infarction ([place]) Last Myocardial Infarction Date:: 02/08/22 History of Any Multi-Drug Resistant Organisms: None Reported Past Surgical History: Heart Catheterization With Stent, Orthopedic Surgery Additional Past Surgical History / Comment(s): 02/01/22 right radial heart cath with stent, 02/08/22 left radial heart cath with stent, right shoulder bone spur removed. Past Anesthesia/Blood Transfusion Reactions: No Reported Reaction Date of Last Stent Placement:: 02/25/2022 Past Psychological History: No Psychological Hx Reported Smoking Status: Current every day smoker Past Alcohol Use History: Occasional Past Drug Use History: Marijuana - Past Family History Father Family Medical History: Coronary Artery Disease (CAD) Medications and Allergies Home Medications Medication Instructions Recorded Confirmed Type Nitroglycerin Sl Tabs [Nitrostat] 0.4 mg SUBLINGUAL Q5M PRN #25 tab 02/08/22 Rx Pantoprazole [Protonix] 40 mg PO DAILY 02/08/22 02/23/25 History metFORMIN HCL ER [Glucophage XR] 500 mg PO DAILY 02/08/22 02/23/25 History Spironolactone [Aldactone] 25 mg PO DAILY #30 tab 02/10/22 02/23/25 Rx Isosorbide Mononitrate ER [Imdur] 30 mg PO DAILY 06/19/22 02/23/25 History Aspirin 81 mg PO DAILY #30 tab 06/20/22 02/23/25 Rx Furosemide [Lasix] 40 mg PO DAILY #30 tablet 02/23/25 Rx Meloxicam [Mobic] 7.5 mg PO DAILY 02/23/25 02/23/25 History Metoprolol Succinate (ER) [Toprol 50 mg PO DAILY 02/23/25 02/23/25 History XL] Montelukast [Singulair] 10 mg PO DAILY 02/23/25 02/23/25 History Rosuvastatin [Crestor] 10 mg PO DAILY 02/23/25 02/23/25 History lisinopriL [Zestril] 20 mg PO DAILY 02/23/25 02/23/25 History Allergies Allergy/AdvReac Type Severity Reaction Status Date / Time No Known Allergies Allergy Verified 02/23/25 07:52 Physical Exam Vitals: Vital Signs Temp Pulse Pulse Resp BP BP BP 02/23/25 07:18 97.7 F 57 L 16 146/79 07/16/25 04:54 97.7 F 60 18 132/78 02/23/25 03:58 61 18 135/96 02/23/25 03:56 58 L 02/23/25 03:41 60 02/23/25 02:51 58 L 20 125/73 02/23/25 00:45 97.5 F L 67 16 153/82 Pulse Ox 02/23/25 07:18 96 02/23/25 04:54 96 02/23/25 03:58 100 02/23/25 03:56 02/23/25 03:41 02/23/25 02:51 97 02/23/25 00:45 99 Intake and Output 02/22/25 02/23/25 02/23/25 22:59 06:59 14:59 Intake Total 480 Balance 480 Intake: Oral 480 Other: Voiding Method Toilet # Voids 1 Weight 113.398 kg 114.1 kg Results CBC & Chem 7: 02/23/25 01:20 02/23/25 01:20 Labs: Abnormal Lab Results - Last 24 Hours (Table) 02/23/25 02/23/25 02/23/25 Range/Units 01:20 01:20 12:17 WBC 10.66 H (4.50-10.00) 10*3/uL Neutrophils # 8.10 H (1.80-7.70) 10*3/uL Glucose 134 H (74-99) mg/dL POC Glucose (mg/dL) 225 H (70-110) mg/dL Thrombosis Risk Factor Assmnt - Choose All That Apply Each Factor Represents 1 point: Age 41-60 years, Obesity (BMI >25), Swollen legs (current) Thrombosis Risk Factor Assessment Total Risk Factor Score: 3 Thrombosis Risk Factor Assessment Level: Moderate Risk
--- NOTE | 2025-02-23 14:02 | P.DS ---
Providers Date of admission: 02/23/25 03:24 Attending physician: Deniz Meza Consults: 02/23/25 03:24 Consult Physician Routine Consulting Provider: Germain Caldwell Consult Reason/Comments: copd? Do you want consulting provider notified?: Yes Consult Physician Routine Consulting Provider: Georgi Stevens Consult Reason/Comments: chf Do you want consulting provider notified?: Yes Primary care physician: [facility] Course: 59-year-old male with history coronary disease congestive heart failure EF of around 40% came in with complaints of shortness of breath orthopnea. Patient chest x-ray showed pulmonary edema patient has elevated proBNP of 2440. Patient was given IV Lasix with significant improvement patient is clinically doing well at this time. Patient denies any fever chills nausea vomiting chest x-ray did not show any pneumonia EKG did not show any acute ST-T wave changes. Troponins are within normal limits. Patient blood sugars are slightly elevated today. REVIEW OF SYSTEMS: All other systems are negative except those mentioned in the HPI PHYSICAL EXAMINATION: GENERAL: The patient is alert and oriented x3, not in any acute distress. Well developed, well nourished. Obese HEENT: Pupils are round and equally reacting to light. EOMI. No scleral icterus. No conjunctival pallor. Normocephalic, atraumatic. No pharyngeal erythema. No thyromegaly. CARDIOVASCULAR: S1 and S2 present. No murmurs, rubs, or gallops. PULMONARY: Chest is clear to auscultation, no wheezing or crackles. ABDOMEN: Soft, nontender, nondistended, normoactive bowel sounds. No palpable organomegaly. MUSCULOSKELETAL: No joint swelling or deformity. EXTREMITIES: No cyanosis, clubbing, or mild lower extremity pedal edema NEUROLOGICAL: Gross neurological examination did not reveal any focal deficits. SKIN: No rashes. Labs and imaging data was reviewed by me. Assessment and plan -Congestive heart failure chronic systolic function with acute exacerbation: Patient improved with IV Lasix. Patient will be transition to oral Lasix probably can be discharged today. Patient will continue lisinopril, beta- janet. - Coronary disease resumed on Imdur aspirin statin beta-janet. - Type 2 diabetes mellitus uncontrolled mildly elevated blood sugars I do not have any hemoglobin A1c I do not have enough glucose readings to titrate his medications patient may need increased dose of metformin. Patient will follow- up with PCP for for this. Hyperlipidemia - Hypertension - Obesity. Patient will be discharged today. Patient will be discharged with 40 mg of Lasix we will need basic metabolic profile tested as an outpatient. Patient is already on Aldactone and lisinopril. Patient's potassium upon discharge is 4.7 Plan - Discharge Summary New Discharge Prescriptions: New Furosemide [Lasix] 40 mg PO DAILY #30 tablet Continue metFORMIN HCL ER [Glucophage XR] 500 mg PO DAILY Isosorbide Mononitrate ER [Imdur] 30 mg PO DAILY Metoprolol Succinate (ER) [Toprol XL] 50 mg PO DAILY Meloxicam [Mobic] 7.5 mg PO DAILY Pantoprazole [Protonix] 40 mg PO DAILY Nitroglycerin Sl Tabs [Nitrostat] 0.4 mg SUBLINGUAL Q5M PRN #25 tab PRN Reason: Chest Pain Spironolactone [Aldactone] 25 mg PO DAILY #30 tab Aspirin 81 mg PO DAILY #30 tab lisinopriL [Zestril] 20 mg PO DAILY Montelukast [Singulair] 10 mg PO DAILY Rosuvastatin [Crestor] 10 mg PO DAILY Discharge Medication List Nitroglycerin Sl Tabs [Nitrostat] 0.4 mg SUBLINGUAL Q5M PRN #25 tab 02/08/22 [Rx] Pantoprazole [Protonix] 40 mg PO DAILY 02/08/22 [History] metFORMIN HCL ER [Glucophage XR] 500 mg PO DAILY 02/08/22 [History] Spironolactone [Aldactone] 25 mg PO DAILY #30 tab 02/10/22 [Rx] Isosorbide Mononitrate ER [Imdur] 30 mg PO DAILY 06/19/22 [History] Aspirin 81 mg PO DAILY #30 tab 06/20/22 [Rx] Furosemide [Lasix] 40 mg PO DAILY #30 tablet 02/23/25 [Rx] Meloxicam [Mobic] 7.5 mg PO DAILY 02/23/25 [History] Metoprolol Succinate (ER) [Toprol XL] 50 mg PO DAILY 02/23/25 [History] Montelukast [Singulair] 10 mg PO DAILY 02/23/25 [History] Rosuvastatin [Crestor] 10 mg PO DAILY 02/23/25 [History] lisinopriL [Zestril] 20 mg PO DAILY 02/23/25 [History] Follow up Appointment(s)/Referral(s): Georgi Stevens MD [STAFF PHYSICIAN] - 1 Week (Cardiology said they will call patient for an appointment. ) Elham Ariza DO [Primary Care Provider] - 3 Days Germain Caldwell MD [STAFF PHYSICIAN] - 05/11/25 9:45 am Patient Instructions/Handouts: Heart Failure (DC), How to Stop Smoking (DC) Discharge Disposition: HOME SELF-CARE
[2025-02-24] MEDS ORDERED: metFORMIN 500 MG TAB PO SCH (07:30)
== END 2025-02-23 13:40 | disposition home or self-care (01) ==
LOC: EC 00:44 → 6NMEDSUR 03:24
PROVIDERS: ADMIT Hospitalist; ATTEND Hospitalist
DX: I11.0 Hypertensive heart disease with heart failure (principal); I50.23 Acute on chronic systolic (congestive) heart failure; E11.65 Type 2 diabetes mellitus with hyperglycemia; I25.10 Atherosclerotic heart disease of native coronary artery without angina pectoris; J44.9 Chronic obstructive pulmonary disease, unspecified; I25.5 Ischemic cardiomyopathy; E78.5 Hyperlipidemia, unspecified; Z68.38 Body mass index [BMI] 38.0-38.9, adult; E66.9 Obesity, unspecified; F12.90 Cannabis use, unspecified, uncomplicated; R00.2 Palpitations; F17.210 Nicotine dependence, cigarettes, uncomplicated; Z79.82 Long term (current) use of aspirin; Z79.84 Long term (current) use of oral hypoglycemic drugs; Z79.1 Long term (current) use of non-steroidal anti-inflammatories (NSAID); Z79.899 Other long term (current) drug therapy; Z71.6 Tobacco abuse counseling; Z91.119 Patient's noncompliance with dietary regimen due to unspecified reason; Z95.5 Presence of coronary angioplasty implant and graft
CPT/HCPCS: 96376; 96374; 96375; 99285; 36415; 94640; 93005; 83880; 80053; 83690; 83735; 84484; 85025; 85610; 85730; 71046; G0378; J1100; J1938